=== PATIENT | male | born 1945 | race Caucasian/White ===

== ENCOUNTER 2016-08-27 10:54 | Inpatient (IN) | payer OTHER ==
--- NOTE | 2016-08-27 11:10 | CPEKG ---
Heart Rate: 55 RR Interval: 1091 P-R Interval: 176 QRSD Interval: 74 QT Interval: 412 QTC Interval: 394 P [place]: -7 QRS [place]: 3 T Wave [place]: 14 EKG Severity - ABNORMAL ECG - EKG Impression: SINUS RHYTHM EKG Impression: CONSIDER ANTEROSEPTAL INFARCT EKG Impression: BORDERLINE T WAVE ABNORMALITIES Electronically Signed By: Vera Solorzano 27-Aug-2016 14:49:02
[2016-08-27 11:26] LABS: % IMMATURE GRANULYOCYTES 0.5 % (0.0-1.1); ABSOLUTE IMMATURE GRANULOCYTES 0.03 10^3/uL (0.00-0.10); ADD DIFF? NO; ADD MORPH? NO; ADD SCAN? NO; ATYPICAL LYMPHOCYTE FLAG 0 (0-99); FRAGMENT RBC FLAG 0 (0-99); HEMATOCRIT 43.9 % (40.0-51.0); HEMOGLOBIN 14.8 g/dL (13.7-17.5); LEFT SHIFT FLG 0 (0-99); LIPEMIA HEMOLYSIS FLAG 80 (0-99); MEAN CELL HEMOGLOBIN 31.8 pg (27.9-34.1); MEAN CELL HEMOGLOBIN CONCENTR. 33.7 g/dL (32.4-36.7); MEAN CELL VOLUME 94.2 fL (81.5-99.8); MEAN PLATELET VOLUME 9.9 fL (8.7-11.7); PLATELET CLUMPS FLAG 0 (0-99); PLATELET COUNT 199 10^3/uL (150-400); RED BLOOD CELL COUNT 4.66 10^6/uL (4.40-6.38); RED CELL DISTRIBUTION WIDTH 12.6 % (11.5-15.2)
[2016-08-27 11:34] LABS: ANION GAP 10 mEq/L (8-16); CALCIUM 9.7 mg/dL (8.5-10.4); CARBON DIOXIDE 28 mEq/l (22-31); CHLORIDE 106 mEq/L (97-110); CREATININE 0.9 mg/dL (0.7-1.3); GLOMERULAR FILTRATION RATE > 60; GLUCOSE 90 mg/dL (70-100); POTASSIUM 4.2 mEq/L (3.5-5.2); SODIUM 144 mEq/L (134-144)
[2016-08-27 11:44] LABS: TROPONIN I < 0.012 ng/mL (0-0.034)
--- NOTE | 2016-08-27 11:59 | EDPHY ---
H & P Time Seen by Provider: 08/27/16 11:24 HPI/ROS: CHIEF COMPLAINT: Chest pain HISTORY OF PRESENT ILLNESS: 71-year-old male with a history of coronary disease presents with chest pain. Onset of chest pain 9 days ago. The chest pain has been intermittent and has frequently awakened him from sleep. This morning he had an episode of substernal chest pressure while he was taking a shower. The pressure lasted approximately 15 minutes and then resolved. No associated symptoms. No known alleviating or aggravating factors. The pain has been occurring primarily at rest. Similar to prior heart symptoms. REVIEW OF SYSTEMS: Constitutional: No fever, no chills Eyes: No visual changes ENT: No sore throat Respiratory: No cough, no shortness of breath Gastrointestinal: No nausea, no vomiting, no abdominal pain Genitourinary: no dysuria Musculoskeletal: No leg pain or swelling Skin: No rash Neurological: No headache, no weakness Psychiatric: No depression Past Medical/Surgical History: Coronary artery disease Social History: Counselling Psychologist: Dr. Hernandez Smoking Status: Never smoked Physical Exam: General Appearance: Alert, pleasant Eyes: Pupils equal and round, no conjunctival pallor or injection ENT, Mouth: Mucous membranes moist Neck: Normal inspection Respiratory: Lungs are clear to auscultation Cardiovascular: Regular rate and rhythm Gastrointestinal: Abdomen is soft and nontender Neurological: A&O, nonfocal, normal gait Skin: Warm and dry, no rash Extremities: Nontender, no pedal edema Psychiatric: Mood and affect normal Constitutional: Initial Vital Signs Temperature (C) 36.8 C 08/27/16 11:00 Heart Rate 61 08/27/16 11:00 Respiratory Rate 18 08/27/16 11:00 Blood Pressure 162/93 H 08/27/16 11:00 O2 Sat (%) 94 08/27/16 11:00 O2 Delivery Mode Room Air Allergies/Adverse Reactions: morphine Allergy (Verified 08/27/16 10:55) Itching Home Medications: Medication Instructions Recorded Aspirin [Aspirin 81mg (*)] 81 mg PO HS 06/19/12 Levothyroxine [Synthroid 112 mcg 112 mcg PO DAILY06 06/19/12 (*)] Tamsulosin HCl [Flomax 0.4 MG (*)] 0.4 mg PO HS 06/19/12 Clopidogrel Bisulfate [Plavix (*)] 75 mg PO DAILY 08/27/16 Cyanocobalamin [Vitamin B12 (*)] 2,500 mcg PO MOTUWETHFR 08/27/16 Herbals/Supplements -Info Only 1 ea PO DAILY 08/27/16 Mirtazapine 15 mg PO Q4D 08/27/16 Nitroglycerin [Nitrostat 0.4 mg 0.4 mg SL Q5M PRN 08/27/16 (*)] Rosuvastatin Calcium [Crestor 20mg 20 mg PO HS 08/27/16 (*)] Medical Decision Making - Diagnostics EKG Interpretation: EKG interpreted by me reveals sinus bradycardia, rate 55, poor R-wave progression. Impression: Abnormal EKG Imaging Results: Imaging Impressions Chest X-Ray 08/27/16 11:24 Impression: No evidence for acute cardiopulmonary abnormality. Chronic findings as above. Chest/Thorax CTA 08/27/16 12:00 Impression: 1. No evidence of pulmonary embolus using CT protocol. 2. Relative narrowing of the main pulmonary artery. Rule out pulmonary arterial stenosis. 3. Mild anterior wedging of T8 and T12 appear to be old. If indicated, consider DEXA scan at some point to evaluate underlying bone mineral density. 4. Incidental calcified granuloma left lower lobe and involving the spleen. Findings discussed with Vera Solorzano M.D. at 13:04 hour, 08/27/2016. ED Course/Re-evaluation: This patient with known coronary disease presents with substernal chest pressure , now resolved. Stat EKG reveals no evidence of ischemia. Given multiple episodes of typical cardiac pain, I feel that he will need to be admitted for further cardiac evaluation. D-dimer is slightly elevated, CT pulmonary angiogram ordered to rule out pulmonary embolism. CT pulmonary angiogram is normal. The patient remains asymptomatic. [facility] consultant reveals normal sinus rhythm. The hospitalist service was consulted for admission. Differential Diagnosis: Differential diagnosis includes though it is not limited to pneumonia, pneumothorax, pulmonary embolism, aortic dissection, pericarditis, acute coronary syndrome. - Data Points Laboratory Results: Laboratory Results 08/27/16 11:15 08/27/16 11:15 08/27/16 08/27/16 08/27/16 11:15 11:15 11:05 WBC 6.16 10^3/uL 10^3/uL (3.80-9.50) RBC 4.66 10^6/uL 10^6/uL (4.40-6.38) Hgb 14.8 g/dL g/dL (13.7-17.5) Hct 43.9 % % (40.0-51.0) MCV 94.2 fL fL (81.5-99.8) MCH 31.8 pg pg (27.9-34.1) MCHC 33.7 g/dL g/dL (32.4-36.7) RDW 12.6 % % (11.5-15.2) Plt Count 199 10^3/uL 10^3/uL (150-400) MPV 9.9 fL fL (8.7-11.7) Neut % (Auto) 68.5 % % (39.3-74.2) Lymph % (Auto) 19.3 % % (15.0-45.0) [place] % (Auto) 10.1 % % (4.5-13.0) Eos % (Auto) 1.1 % % (0.6-7.6) Baso % (Auto) 0.5 % % (0.3-1.7) Nucleat RBC Rel Count 0.0 % % (0.0-0.2) Absolute Neuts (auto) 4.22 10^3/uL 10^3/uL (1.70-6.50) Absolute Lymphs (auto) 1.19 10^3/uL 10^3/uL (1.00-3.00) Absolute Monos (auto) 0.62 10^3/uL 10^3/uL (0.30-0.80) Absolute Eos (auto) 0.07 10^3/uL 10^3/uL (0.03-0.40) Absolute Basos (auto) 0.03 10^3/uL 10^3/uL (0.02-0.10) Absolute Nucleated RBC 0.00 10^3/uL 10^3/uL (0-0.01) Immature Gran % 0.5 % % (0.0-1.1) Immature Gran # 0.03 10^3/uL 10^3/uL (0.00-0.10) D-Dimer 0.65 ug/mLFEU H ug/mLFEU (0.00-0.50) Sodium 144 mEq/L mEq/L (134-144) Potassium 4.2 mEq/L mEq/L (3.5-5.2) Chloride 106 mEq/L mEq/L (97-110) Carbon Dioxide 28 mEq/l mEq/l (22-31) Anion Gap 10 mEq/L mEq/L (8-16) BUN 18 mg/dL mg/dL (7-23) Creatinine 0.9 mg/dL mg/dL (0.7-1.3) Estimated GFR > 60 Glucose 90 mg/dL mg/dL (70-100) Calcium 9.7 mg/dL mg/dL (8.5-10.4) Troponin I < 0.012 ng/mL ng/mL (0-0.034) NT-Pro-B Natriuret Pep 136 pg/mL H pg/mL (0-125) Departure - Departure Disposition: [facility] Inpatient Acute Clinical Impression: Chest pain Qualifiers: Chest pain type: precordial pain Qualified Code(s): R07.2 - Precordial pain Condition: Fair
[2016-08-27] MEDS ORDERED: IOPAMIDOL (ISOVUE 370) 100 ML BTL IV ONE (12:34)
[2016-08-27] MEDS ORDERED: ONDANSETRON DISINTEGRATING 4 MG TAB PO PRN (13:38)
[2016-08-27] MEDS ORDERED: ONDANSETRON 4 MG/2 ML VIAL IVP PRN (13:38)
[2016-08-27] MEDS ORDERED: NITROGLYCERIN 0.4 MG BTL SL PRN (13:38)
[2016-08-27] MEDS ORDERED: ACETAMINOPHEN 325 MG TAB PO PRN (13:38)
[2016-08-27] MEDS: CYANO/VITAMIN B12 1000 MCG TAB PO SCH (14:06)
[2016-08-27] MEDS ORDERED: HEPARIN 10,000 UNIT/10 ML MDV IVP PRN ×2 (16:14→16:58)
[2016-08-27] MEDS ORDERED: HEPARIN/DEXTROSE 500 ML IV SCH ×2 (16:14→17:00)
--- NOTE | 2016-08-27 16:19 | GCON ---
[f rep st] CONSULTATION The patient is a 71-year-old gentleman admitted to the hospital for further evaluation. Nine days ago, during the day, he started having intense burning in the center of his chest. It comes on when it wants to, and it was occurring during the day with activity. Now it is occurring in the evenings as well. It is getting more intense every single night. He had 10 minutes of this discomfort in the center of his chest last night. It is a burning sensation without radiation. No arm or jaw pain. In the past, he has had similar symptoms. Had a nuclear stress test, which was abnormal, and led to him having coronary angiography by Dr. Weinstein with stenting 2 years ago. Now he is having similar discomfort. He does not have fever, chills or cough. No syncope, near syncope. No hot, swollen joints. No photophobia, stiff neck, sore throat. No dysphagia or hoarseness. No trauma of the head, neck, or chest. No fever, chills, cough. No lightheadedness, dizziness, syncope. No atrial arrhythmias. No history of atrial fibrillation. He has been taking his usual medications and doing reasonably well. CARDIAC RISK FACTORS: Positive for dyslipidemia and known coronary artery disease. Cardiac risk factors negative for hypertension, diabetes, hyperuricemia, history of known myocardial infarction or family history of any coronary disease. MEDICATIONS: Aspirin, Synthroid, Flomax, Plavix, vitamin B12, herbals, nitroglycerin, Crestor. PAST SURGICAL HISTORY: Multiple knee operations, multiple shoulder operations, 3 stomach operations, status post gastrectomy at [facility], procedure for an obstructive kidney, surgical procedure for renal stones. FAMILY HISTORY: No family history of premature coronary disease. No history of unexplained sudden . ALLERGIES: Morphine; it causes him itching. REVIEW OF SYSTEMS: A 12-point review of systems is negative, except as noted above. SOCIAL HISTORY: He was born in [place], [place], and he worked at [employer] in [place], [place], transferred to [place] in with the [employer]. In 2008, after 36 years with [employer], he retired. He lives with his , and he does have children. He exercises using elliptical, weights, sit-ups, planks, and running for further exercise. VITAL SIGNS: His blood pressure is 118/84. His heart rate is 53. Respiratory rate is 18. Temperature is afebrile. STUDIES: His EKG shows sinus bradycardia, nonspecific ST-T changes. Chest x- ray: No evidence for acute cardiopulmonary abnormality. Chest CT shows no evidence of pulmonary embolism, narrowing of the main pulmonary artery. Question rule out pulmonary arterial stenosis, mild anterior wedging of T8 and T12, and a calcified granuloma of the left lower lobe involving the spleen. His EKG shows possible anterior infarction, nonspecific ST-T flattening. ASSESSMENT AND PLAN: 1. Coronary disease. 2. Dyslipidemia. 3. The patient has developed now a burning sensation, which is very consistent with what he had prior to his stenting 2 years ago. It is in the center of the chest. It bothers him a great deal, and it is getting worse. It is not clear that it is a typical pain in that it is not always worse with exertion and it does not always go away with rest. However, he has significant risk factor in known coronary artery disease and hyperlipidemia. We would recommend that he undergo coronary angiography instead of stress testing to get a definitive diagnosis, and it is a safer approach than going through stress testing. I offered him both options, and he would like to proceed with coronary angiography. He has just eaten a significant amount of food, so we will put him on IV heparin overnight and watch him very carefully. If he deteriorates in any way, he can have an emergency catheterization at any time. However, if he does well , we will leave him alone and do an angiogram first thing in the morning, and he will be n.p.o. after that. I have talked to the nursing staff, and they are going to put both those orders in for n.p.o. and IV heparin starting now. In terms of other causes for his burning, it obviously could be GI in nature. The pulmonary embolism evaluation has been done. A CT angiogram was negative. We have discussed prevention, and he is doing a very good job. 4. Status post gastrectomy. This affects his life in a significant way, and we have discussed this to begin with. 5. History of renal stones. 6. Multiple orthopedic procedures. We should heme test his stools and consider amylase and lipase as well in our evaluation. /[id number]/MODL MTDD
--- NOTE | 2016-08-27 16:39 | PDEACUHP ---
History and Physical - Chief Complaint chest pain - History of Present Illness 71 yo M with PMH of CAD sp 2 stents to LAD in presenting with approximately 9 days of chest pain. He notes the pain frequently wakes him from sleep and has been increasing in both severity and frequency. He notes that it is essentially the exact same pain he had prior to the symptoms he had before his stents were placed. He notes the pain is substernal without radiation, it lasts minutes generally, last episode 10 minutes. The days it wakes him from sleep have associated with days that he has exercised. No positional or pleuritic component. Resting seems to make it better, he has not tried nitro when it occurred. He states that Dr. Weinstein told him that if he has this pain again, he should call 911, which is why he came to the ER for further evaluation. History Information - Allergies/Home Medication List Allergies/Adverse Reactions: morphine Allergy (Verified 08/27/16 10:55) Itching Home Medications: Aspirin [Aspirin 81mg (*)] 81 mg PO HS 06/19/12 [Last Taken 08/26/16] Levothyroxine [Synthroid 112 mcg (*)] 112 mcg PO DAILY06 06/19/12 [Last Taken ] Tamsulosin HCl [Flomax 0.4 MG (*)] 0.4 mg PO HS 06/19/12 [Last Taken 08/26/16] Clopidogrel Bisulfate [Plavix (*)] 75 mg PO DAILY 08/27/16 [Last Taken 08/27/16] Cyanocobalamin [Vitamin B12 (*)] 2,500 mcg PO MOTUWETHFR 08/27/16 [Last Taken ] Herbals/Supplements -Info Only 1 ea PO DAILY 08/27/16 [Last Taken Unknown] Mirtazapine 15 mg PO Q4D 08/27/16 [Last Taken 08/24/16] Nitroglycerin [Nitrostat 0.4 mg (*)] 0.4 mg SL Q5M PRN 08/27/16 [Last Taken Unknown] Rosuvastatin Calcium [Crestor 20mg (*)] 20 mg PO HS 08/27/16 [Last Taken ] I have personally reviewed and updated: family history, medical history, social history, surgical history - Past Medical History coronary artery disease (sp 2 stents to LAD), hypertension, hyperlipidemia Additional medical history: AVNRT s/p ablation. pernicious anemia. sbo. hypothyroid. BPH. 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 multiple ortho surgeries - Social History Smoking Status: Never smoked Review of Systems ROS: 10pt was reviewed & negative except for what was stated in HPI & below Physical Exam Temp Pulse Resp BP Pulse Ox 37.2 C 53 L 18 118/84 H 92 08/27/16 13:54 08/27/16 13:54 08/27/16 13:54 08/27/16 13:54 08/27/16 13:54 Constitutional: no apparent distress, appears nourished Eyes: PERRL Ears, Nose, Mouth, Throat: moist mucous membranes Cardiovascular: regular rate and rhythym, no murmur, rub, or gallop, No edema Respiratory: no respiratory distress, no rales or rhonchi, clear to auscultation Gastrointestinal: normoactive bowel sounds, soft, non-tender abdomen Genitourinary: no bladder fullness Skin: warm Musculoskeletal: full muscle strength, no muscle tenderness Neurologic: AAOx3 Psychiatric: interacting appropriately, not anxious, not encephalopathic Lab Data & Imaging Review 08/27/16 11:15 08/27/16 11:15 WBC 6.16 10^3/uL (3.80-9.50) 08/27/16 11:15 RBC 4.66 10^6/uL (4.40-6.38) 08/27/16 11:15 Hgb 14.8 g/dL (13.7-17.5) 08/27/16 11:15 Hct 43.9 % (40.0-51.0) 08/27/16 11:15 MCV 94.2 fL (81.5-99.8) 08/27/16 11:15 MCH 31.8 pg (27.9-34.1) 08/27/16 11:15 MCHC 33.7 g/dL (32.4-36.7) 08/27/16 11:15 RDW 12.6 % (11.5-15.2) 08/27/16 11:15 Plt Count 199 10^3/uL (150-400) 08/27/16 11:15 MPV 9.9 fL (8.7-11.7) 08/27/16 11:15 Neut % (Auto) 68.5 % (39.3-74.2) 08/27/16 11:15 Lymph % (Auto) 19.3 % (15.0-45.0) 08/27/16 11:15 [place] % (Auto) 10.1 % (4.5-13.0) 08/27/16 11:15 Eos % (Auto) 1.1 % (0.6-7.6) 08/27/16 11:15 Baso % (Auto) 0.5 % (0.3-1.7) 08/27/16 11:15 Nucleat RBC Rel Count 0.0 % (0.0-0.2) 08/27/16 11:15 Absolute Neuts (auto) 4.22 10^3/uL (1.70-6.50) 08/27/16 11:15 Absolute Lymphs (auto) 1.19 10^3/uL (1.00-3.00) 08/27/16 11:15 Absolute Monos (auto) 0.62 10^3/uL (0.30-0.80) 08/27/16 11:15 Absolute Eos (auto) 0.07 10^3/uL (0.03-0.40) 08/27/16 11:15 Absolute Basos (auto) 0.03 10^3/uL (0.02-0.10) 08/27/16 11:15 Absolute Nucleated RBC 0.00 10^3/uL (0-0.01) 08/27/16 11:15 Immature Gran % 0.5 % (0.0-1.1) 08/27/16 11:15 Immature Gran # 0.03 10^3/uL (0.00-0.10) 08/27/16 11:15 D-Dimer 0.65 ug/mLFEU (0.00-0.50) H 08/27/16 11:05 Sodium 144 mEq/L (134-144) 08/27/16 11:15 Potassium 4.2 mEq/L (3.5-5.2) 08/27/16 11:15 Chloride 106 mEq/L (97-110) 08/27/16 11:15 Carbon Dioxide 28 mEq/l (22-31) 08/27/16 11:15 Anion Gap 10 mEq/L (8-16) 08/27/16 11:15 BUN 18 mg/dL (7-23) 08/27/16 11:15 Creatinine 0.9 mg/dL (0.7-1.3) 08/27/16 11:15 Estimated GFR > 60 08/27/16 11:15 Glucose 90 mg/dL (70-100) 08/27/16 11:15 Calcium 9.7 mg/dL (8.5-10.4) 08/27/16 11:15 Troponin I < 0.012 ng/mL (0-0.034) 08/27/16 11:15 NT-Pro-B Natriuret Pep 136 pg/mL (0-125) H 08/27/16 11:15 Visualized and Interpreted Chest x-ray results: Yes Chest X-Ray results: no infiltrate Visualized and Interpreted EKG results: Yes EKG Interpretation: Positive for: normal sinsus rhythm, other EKG additional interpertation: sathish, poor rwp Assessment & Plan Assessment: Chest pain (Acute) 71 yo M with hx of CAD presenting with chest pain similar to prior unstable angina sxs # chest pain/unstable angina: hx concerning for recurrent unstable angina with crescendo sxs similar in nature to prior sxs. Initial w/u including cxr, ecg, trops reassuring. Trend trops, monitor on tele and plan for cardiac angiography in am. Cardiology consulted. # CAD: as above, on asa/plavix with a plan to be on these for life as well as statin but no BB. Will start BB prior to dc # HLD: continue statin # pernicious anemia: stable # hx of gastric carcinoid resection s/p gastrectomy and subsequent sbo: no current issues observation status, will likely need < 48 hours stay for eval/mgmt of above. Care plan reviewed with cardiology, patient new to my care. old records reviewed and summarized as above.
[2016-08-27 18:39] LABS: APTT 34.1 SEC (23.0-38.0); INR 1.12 (0.83-1.16); PROTIME(PATIENT) 14.3 SEC (12.0-15.0)
[2016-08-27] MEDS: TAMSULOSIN HCL 0.4 MG CAP PO SCH (20:04)
[2016-08-27] MEDS ORDERED: ROSUVASTATIN CALCIUM 20 MG TAB PO SCH (21:00)
[2016-08-27] MEDS: diphenhydrAMINE 25 MG CAP PO SCH (21:55)
[2016-08-28] MEDS: LEVOTHYROXINE 112 MCG TAB PO SCH (06:26)
[2016-08-28] MEDS ORDERED: FAMOTIDINE 20 MG TAB PO ONE (07:23)
[2016-08-28] MEDS ORDERED: ASPIRIN EC 325 MG TAB PO ONE (07:23)
[2016-08-28] MEDS ORDERED: NS 1,000 ML IV ONE (07:23)
[2016-08-28] MEDS ORDERED: DIAZEPAM 5 MG TAB PO ONE (07:23)
[2016-08-28] MEDS ORDERED: diphenhydrAMINE 25 MG CAP PO ONE (07:23)
[2016-08-28 07:45] LABS: INR 1.12 (0.83-1.16); PROTIME(PATIENT) 14.3 SEC (12.0-15.0)
[2016-08-28 08:11] LABS: % IMMATURE GRANULYOCYTES 0.2 % (0.0-1.1); ABSOLUTE IMMATURE GRANULOCYTES 0.01 10^3/uL (0.00-0.10); ADD DIFF? NO; ADD MORPH? NO; ADD SCAN? NO; ATYPICAL LYMPHOCYTE FLAG 20 (0-99); FRAGMENT RBC FLAG 0 (0-99); HEMATOCRIT 39.9 % (40.0-51.0); HEMOGLOBIN 13.7 g/dL (13.7-17.5); LEFT SHIFT FLG 0 (0-99); LIPEMIA HEMOLYSIS FLAG 90 (0-99); MEAN CELL HEMOGLOBIN 32.4 pg (27.9-34.1); MEAN CELL HEMOGLOBIN CONCENTR. 34.3 g/dL (32.4-36.7); MEAN CELL VOLUME 94.3 fL (81.5-99.8); PLATELET CLUMPS FLAG 0 (0-99); PLATELET COUNT 172 10^3/uL (150-400); RED BLOOD CELL COUNT 4.23 10^6/uL (4.40-6.38); RED CELL DISTRIBUTION WIDTH 12.7 % (11.5-15.2)
[2016-08-28 09:03] LABS: ANION GAP 9 mEq/L (8-16); CARBON DIOXIDE 25 mEq/l (22-31); CHLORIDE 107 mEq/L (97-110); CHOLESTEROL 85 mg/dL (140-220); CHOLESTEROL/HDL RATIO 2.43 RATIO (1.00-4.97); CREATININE 0.9 mg/dL (0.7-1.3); GLOMERULAR FILTRATION RATE > 60; GLUCOSE 100 mg/dL (70-100); HIGH DENSITY LIPOPROTEIN 35 mg/dL (40-65); LDL/HDL RATIO 1.06 RATIO (1.00-3.64); LOW DENSITY LIPOPROTEIN 37 mg/dL (80-100); MAGNESIUM 2.1 mg/dL (1.6-2.3); NON-HIGH DENSITY LIPOPROTEIN 50 mg/dL (90-129); SODIUM 141 mEq/L (134-144); TRIGLYCERIDE 69 mg/dL (40-150); VERY LOW DENSITY LIPOPROTEINS 13 mg/dL (8-25)
[2016-08-28] MEDS ORDERED: fentaNYL 100 MCG/2 ML INJ ONE ×2 (09:12→10:16)
[2016-08-28] MEDS ORDERED: LIDOCAINE 1% 30 ML SDV ONE (09:12)
[2016-08-28] MEDS ORDERED: MIDAZOLAM 2 MG/2 ML VIAL ONE ×2 (09:13→10:16)
[2016-08-28] MEDS ORDERED: IOPAMIDOL (ISOVUE-370) 150 ML BTL IV ONE ×2 (09:13)
[2016-08-28] MEDS ORDERED: BIVALIRUDIN 250 MG/5 ML VIAL IV ONE (10:24)
[2016-08-28] MEDS ORDERED: CLOPIDOGREL BISULFATE 75 MG TAB ONE (11:00)
--- NOTE | 2016-08-28 11:02 | PDDXCAT ---
Diagnostic Cath Note - . Date: 08/28/16 Intervention: 1. Intravascular ultrasound (IVUS) 2. PTCA and drug eluting stent implantation in the proximal LAD *Procedure 1. selective coronary angiography 2. intravascular ultrasound 3. PTCA and drug-eluting stent implantation the proximal LAD Indication: I was called to perform intravascular ultrasound and possible intervention following the identification of a 60% proximal LAD lesion with JUAN PABLO III flow on diagnostic catheterization with Dr. Moreno. Access: right femoral artery *Materials Left Heart Cath size: 6F Left Heart Cath materials: JL5 Convey, Intuition guide wire, IVUS catheter, 3 x 12 mm Synergy *Findings-Selective Coronary Angiography LAD: The LAD is ~3 mm in size proximally. There is a 67% plaque area stenosis ( via IVUS) in the proximal LAD just distal to previous stent implantation with JUAN PABLO III flow. *Intervention A 6 [place] JL5 Convey was used for guide catheter support and a 0.014" Intuition Guide Wire was inserted into the distal LAD under direct fluoroscopic and angiographic guidance. Intravascular ultrasound with IVUS catheter was performed from the mid to proximal LAD revealing maximal luminal stenosis of 67 % with JUAN PABLO III flow angiographically. We proceeded with drug-eluting stent implantation. A 3 x 12 mm Synergy drug- eluting stent was placed in the LAD lesion just distal to previous stent implantation and inflated to a maximum of 16 aby of pressure. Status post stent implantation, IVUS was again performed in the lesion. There were excellent results with 5% residual stenosis with excellent stent geometry. The stent was well opposed to the vessel wall and JUAN PABLO III flow was present angiographically. *Summary Complications: None Estimated blood loss: <50 mL Closure method: Angioseal Summary: 1. Successful PTCA and drug-eluting stent implantation in the proximal LAD with 5% residual stenosis and JUAN PABLO III flow angiographically. The patient will need to be on dual-antiplatelet therapy for at 1 year status post stent implantation. Patient Problems: Problems Problem Status Onset Chest pain Acute Coronary artery disease Acute Chest pain Acute - ICD10 Problem Qualifiers (1) Coronary artery disease Qualifiers: Coronary Disease-Associated Artery/Lesion type: [place] artery [place] vs. transplanted heart: [place] heart Associated angina: with stable angina Qualified Code(s): I25.118 - Atherosclerotic heart disease of [place] coronary artery with other forms of angina pectoris
[2016-08-28] MEDS ORDERED: LORazepam 2 MG/ML INJ IVP PRN (11:16)
[2016-08-28] MEDS ORDERED: ATROPINE SULFATE 1 MG/10 ML SYR IVP PRN (11:16)
[2016-08-28] MEDS ORDERED: CLOPIDOGREL BISULFATE 75 MG TAB PO ONE (11:16)
[2016-08-28] MEDS ORDERED: TEMAZEPAM 15 MG CAP PO PRN (11:16)
--- NOTE | 2016-08-28 11:20 | CPEKG ---
Heart Rate: 60 RR Interval: 1000 P-R Interval: 184 QRSD Interval: 74 QT Interval: 436 QTC Interval: 436 P [place]: 11 QRS [place]: 6 T Wave [place]: -3 EKG Severity - ABNORMAL ECG - EKG Impression: SINUS RHYTHM EKG Impression: PROBABLE ANTEROSEPTAL INFARCT, OLD EKG Impression: BORDERLINE T ABNORMALITIES, INFERIOR LEADS Electronically Signed By: Angelo Liu 28-Aug-2016 14:38:07
[2016-08-28] MEDS ORDERED: NS 1,000 ML IV SCH (11:30)
--- NOTE | 2016-08-28 11:57 | CPIP ---
[f rep st] INVASIVE CARDIAC PROCEDURE INDICATION: The patient has angina, which is very similar to the discomfort he had with his prior stent. He is getting it at rest, and it has been increasing. It was felt that he was much safer coming to coronary angiography than to go undergo a stress test. He understands the risks and options and wants to proceed. PROCEDURE: 1. Left heart catheterization. 2. Left ventriculogram. 3. Right and left coronary arteriogram. FINDINGS: ANGIOGRAPHY: 1. Left main coronary artery normal. 2. Proximal LAD stent is excellent. At the distal end of the stent, there is a small hazy area without high-grade obstruction. There is excellent flow through the region. The distal LAD has intimal disease present. The circumflex has no significant disease. 3. The right coronary artery is dominant, and there is no high-grade obstructive disease present. LEFT HEART CATH: 1. Left ventricular end-diastolic pressure 12 mmHg. 2. No aortic stenosis. LEFT VENTRICULOGRAM: 1. Normal left ventricular systolic function. 2. Normal left ventricular wall motion. 3. Normal left ventricular chamber dimension. 4. No severe mitral regurgitation. ASSESSMENT: 1. Severe coronary artery disease with good flow through all 3 vessels. 2. Abnormal-appearing mid left anterior descending. 3. Excellent flow through the current stent in the left anterior descending. 4. Area of haziness in the mid left anterior descending, and percutaneous coronary intervention consultation has been requested for intravascular ultrasound and further evaluation. All films were reviewed. COMPLICATIONS: None. BLOOD LOSS: 5 cc. /[id number]/MODL MTDD
--- NOTE | 2016-08-28 13:09 | CPEKG ---
Heart Rate: 51 RR Interval: 1176 P-R Interval: 192 QRSD Interval: 74 QT Interval: 440 QTC Interval: 406 P [place]: 4 QRS [place]: 7 T Wave [place]: -22 EKG Severity - BORDERLINE ECG - EKG Impression: SINUS RHYTHM EKG Impression: NON-SPECIFIC T WAVE FLATTENING. Electronically Signed By: Angelo Liu 28-Aug-2016 14:37:53
[2016-08-28] MEDS: ASPIRIN 325 MG TAB PO SCH (13:43)
[2016-08-28] MEDS: CLOPIDOGREL BISULFATE 75 MG TAB PO SCH (13:43)
--- NOTE | 2016-08-28 15:26 | HOSPPROG ---
Hospitalist Progress Note Assessment/Plan: 71 yo M with hx of CAD presenting with chest pain similar to prior unstable angina sxs # unstable angina: presenting with crescendo angina, taken to prosthetics lab technician today and found to have recurrent disease in LAD and now s/p PCI to LAD. Doing well post cath, continue medical management. Will dc home likely in am so long as continues to do well overnight. # CAD: as above, continue on asa/plavix, will need dual antiplatelet therapy for life. Has been on rosuvastatin and will change to atorvastatin. Added low dose carvedilol. # HLD: continue statin but transitioned to atorvastatin # pernicious anemia: stable # hx of gastric carcinoid resection s/p gastrectomy and subsequent sbo: no current issues Dispo: IP status, given presentation with high risk issue of unstable angina requiring urgent angiography will need > 48 hours stay Subjective: no significant overnight events, patient currently feeling quite well, has eaten, no chest pain overnight Objective: Vital Signs Temp Pulse Resp BP Pulse Ox 36.7 C 84 20 109/57 L 90 L 08/28/16 15:02 08/28/16 15:02 08/28/16 15:02 08/28/16 15:02 08/28/16 15:02 PT 14.3 SEC (12.0-15.0) 08/28/16 07:23 INR 1.12 (0.83-1.16) 08/28/16 07:23 awake alert nad anicteric op clear rrr no mrg cta b soft nt nd no cce warm dry well perfused oriented appropriate - Time Spent With Patient Time Spent with Patient: greater than 35 minutes Time Spent with Patient: Greater than 35 minutes spent on this patients care, greater than 50% of time spent counseling, educating, and coordinating care regarding the above mentioned plan. ICD10 Worksheet Patient Problems: Problems Problem Status Onset Chest pain Acute Chest pain Acute Coronary artery disease Acute
--- NOTE | 2016-08-28 16:45 | SOAPPROG ---
KEVIN Progress Note Assessment/Plan: Assessment: Plan: 08/28/16 16:43 1. Coronary artery disease 2. Dyslipidemia We have discussed his coronary angiography. He wants to proceed with the test. We have gone over the options. I have discussed this with his as well. We will proceed angiography. He and I have reviewed prevention and exercise and lipid management. Subjective: He had no pain last night. He has not had fever chills or cough He has no nausea or vomiting He is not having hot swollen joints or major rashes Studying stiff neck sore throat He is not having headaches near-syncope No palpitations no orthopnea PND dyspnea exertion. Objective: Vital Signs Temp Pulse Resp BP Pulse Ox 36.7 C 84 20 109/57 L 90 L 08/28/16 15:02 08/28/16 15:02 08/28/16 15:02 08/28/16 15:02 08/28/16 15:02 PT 14.3 SEC (12.0-15.0) 08/28/16 07:23 INR 1.12 (0.83-1.16) 08/28/16 07:23 Physical Exam - Physical Exam General Appearance: alert, no apparent distress Respiratory: normal breath sounds Cardiac/Chest: regular rate, rhythm, systolic murmur, No JVD Abdomen: normal bowel sounds, non-tender, soft, No organomegaly Skin: warm/dry, No pallor Extremities: non-tender, No pedal edema, No calf tenderness Neuro/Psych: alert, normal mood/affect ICD10 Worksheet Patient Problems: Problems Problem Status Onset Chest pain Acute Coronary artery disease Acute Chest pain Acute
[2016-08-28] MEDS: CARVEDILOL 3.125 MG TAB PO SCH (17:17)
[2016-08-28] MEDS: CYANO/VITAMIN B12 1000 MCG TAB PO SCH (17:18)
[2016-08-28] MEDS: TAMSULOSIN HCL 0.4 MG CAP PO SCH (19:34)
[2016-08-28] MEDS: diphenhydrAMINE 25 MG CAP PO SCH (20:29)
[2016-08-28] MEDS ORDERED: ATORVASTATIN CALCIUM 40 MG TAB PO SCH (21:00)
[2016-08-29 04:36] VITALS: O2SAT 92
[2016-08-29 05:35] LABS: % IMMATURE GRANULYOCYTES 0.3 % (0.0-1.1); ABSOLUTE IMMATURE GRANULOCYTES 0.02 10^3/uL (0.00-0.10); ADD DIFF? NO; ADD MORPH? NO; ADD SCAN? NO; ALBUMIN 3.2 g/dL (3.5-5.0); ASPARTATE AMINOTRANSFERASE 20 IU/L (17-59); ATYPICAL LYMPHOCYTE FLAG 0 (0-99); BILIRUBIN,TOTAL 0.7 mg/dL (0.1-1.4); CALCIUM 8.9 mg/dL (8.5-10.4); CARBON DIOXIDE 25 mEq/l (22-31); CHLORIDE 105 mEq/L (97-110); CREATININE 0.9 mg/dL (0.7-1.3); FRAGMENT RBC FLAG 0 (0-99); GLOMERULAR FILTRATION RATE > 60; GLUCOSE 83 mg/dL (70-100); HEMATOCRIT 37.8 % (40.0-51.0); HEMOGLOBIN 12.9 g/dL (13.7-17.5); LACTATE DEHYDROGENASE 494 IU/L (313-618); LEFT SHIFT FLG 0 (0-99); LIPEMIA HEMOLYSIS FLAG 90 (0-99); MAGNESIUM 2.1 mg/dL (1.6-2.3); MEAN CELL HEMOGLOBIN 32.5 pg (27.9-34.1); MEAN CELL HEMOGLOBIN CONCENTR. 34.1 g/dL (32.4-36.7); MEAN CELL VOLUME 95.2 fL (81.5-99.8); MEAN PLATELET VOLUME 10.2 fL (8.7-11.7); PLATELET CLUMPS FLAG 0 (0-99); PLATELET COUNT 151 10^3/uL (150-400); RED BLOOD CELL COUNT 3.97 10^6/uL (4.40-6.38); RED CELL DISTRIBUTION WIDTH 12.5 % (11.5-15.2); SODIUM 137 mEq/L (134-144)
[2016-08-29 06:10] LABS: ANION GAP 7 mEq/L (8-16); POTASSIUM 4.5 mEq/L (3.5-5.2)
[2016-08-29] MEDS: LEVOTHYROXINE 112 MCG TAB PO SCH (06:46)
[2016-08-29 07:18] VITALS: BP 123/72; PULSE 57; RESP 16; TEMP 97.8
[2016-08-29] MEDS: ASPIRIN 325 MG TAB PO SCH (07:38)
[2016-08-29] MEDS: CLOPIDOGREL BISULFATE 75 MG TAB PO SCH (07:38)
--- NOTE | 2016-08-29 08:55 | CPEKG ---
Heart Rate: 64 RR Interval: 938 P-R Interval: 196 QRSD Interval: 78 QT Interval: 380 QTC Interval: 392 P Midland: 44 QRS [place]land: 7 T Wave [place]land: 231 EKG Severity - ABNORMAL ECG - EKG Impression: SINUS RHYTHM EKG Impression: CONSIDER ANTEROSEPTAL INFARCT EKG Impression: NONSPECIFIC T ABNORMALITIES, DIFFUSE LEADS Electronically Signed By: Angelo Liu 29-Aug-2016 12:16:19
--- NOTE | 2016-08-29 09:17 | PDDCSUM ---
Discharge Summary Discharge Summary: Dates of service 08/27-08/29/16 Consultations: cardiology Procedures performed: chest CT angio, cardiac angiography and stent to LAD Hospital course by problem: # unstable angina: presenting with crescendo angina, taken to medical laboratory assistant today and found to have recurrent disease in LAD and now s/p PCI to LAD. continue medical management. # CAD: as above, continue on asa/plavix, will need dual antiplatelet therapy for life. Has been on rosuvastatin and will change to atorvastatin. Has had significant bradycardia on BB so will not start BB at this time. # HLD: continue statin but transitioned to atorvastatin # pernicious anemia: stable # hx of gastric carcinoid resection s/p gastrectomy and subsequent sbo: no current issues DC home f/u with cardiology/PCP Meds see EHR > 35 minutes of care spent in dc of this patient more than half in coordination of care and counseling of patient regarding f/u care plans
[2016-08-29] MEDS: CARVEDILOL 3.125 MG TAB PO SCH (09:42)
--- NOTE | 2016-08-29 13:52 | SOAPPROG ---
KEVIN Progress Note Assessment/Plan: Assessment: Plan: 08/28/16 16:43 08/29/16 13:50 1. Coronary artery disease 2. Dyslipidemia 3. Chest discomfort He has coronary angiogram yesterday and did not show any significant obstructive disease. Symptoms have improved. Because of his burning is not clear. The pain was not typical for angina but it was similar to the what he thought was angina in the past. He is walking around feels very well today. He will follow up with me in the office. We have reviewed prevention. 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 I will see him after that is done. 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 I would like him to lose some weight and continue to work on his exercise. All his questions have been answered I have discussed this case with his . I have been in contact with the hospitalist. He is cannot take beta-sid so there was some question about whether he was going to Coreg but he is not going to do that. 08/29/16 13:52 Subjective: He is not having any chest pain Did not have any more heart burning. All he is not having he is not having any trouble with his angiography site. He is taking his medication. Been walking around and not having any symptoms. He has no shortness of breath or orthopnea. He has no peripheral edema. Objective: Vital Signs Temp Pulse Resp BP Pulse Ox 36.6 C 57 L 16 123/72 H 92 08/29/16 07:15 08/29/16 07:15 08/29/16 07:15 08/29/16 07:15 08/29/16 07:15 Laboratory Results 08/29/16 04:52 08/29/16 04:52 08/28/16 08/29/16 08/30/16 05:59 05:59 05:59 Intake Total 820 Output Total 500 Balance 320 PT 14.3 SEC (12.0-15.0) 08/28/16 07:23 INR 1.12 (0.83-1.16) 08/28/16 07:23 Physical Exam - Physical Exam General Appearance: alert, no apparent distress Neck: full range of motion Respiratory: lungs clear Cardiac/Chest: regular rate, rhythm, systolic murmur Abdomen: non-tender, soft, organomegaly Skin: normal color, warm/dry Extremities: non-tender, normal inspection Neuro/Psych: alert, normal mood/affect ICD10 Worksheet Patient Problems: Problems Problem Status Onset Chest pain Acute Chest pain Acute Coronary artery disease Acute
== END 2016-08-29 10:55 | disposition home or self-care (01) | DRG 247 ==
LOC: F1N 13:00 → F2W 08-28 12:52 → OBSVTOIN 08-28 13:17
PROVIDERS: ADMIT Internal Medicine; ATTEND Internal Medicine
PROC: 4A023N7 Measurement of Cardiac Sampling and Pressure, Left Heart, Percutaneous Approach (ICD-10-PCS; principal; 2016-08-28)
PROC: 027034Z Dilation of Coronary Artery, One Artery with Drug-eluting Intraluminal Device, Percutaneous Approach (ICD-10-PCS; principal; 2016-08-28)
PROC: B2151ZZ Fluoroscopy of Left Heart using Low Osmolar Contrast (ICD-10-PCS; principal; 2016-08-28)
PROC: B2111ZZ Fluoroscopy of Multiple Coronary Arteries using Low Osmolar Contrast (ICD-10-PCS; principal; 2016-08-28)
DX: I25.110 Atherosclerotic heart disease of native coronary artery with unstable angina pectoris (principal); E78.5 Hyperlipidemia, unspecified; I10 Essential (primary) hypertension; D51.0 Vitamin B12 deficiency anemia due to intrinsic factor deficiency; Z95.5 Presence of coronary angioplasty implant and graft
CPT/HCPCS: 85520-90; C1753; C1760; C1769; C1874; C1887; C9600; G0378; J0583; J1644; J2250; J3010; Q9967

== ENCOUNTER 2017-09-12 23:06 | Inpatient (IN) | payer OTHER, MEDICARE ==
--- NOTE | 2017-09-12 23:19 | EDPHY ---
H & P Stated Complaint: ABd pain, recent obstruction Time Seen by Provider: 09/12/17 23:19 HPI/ROS: HPI CHIEF COMPLAINT: Nausea, vomiting, abdominal bloating, recent SBO HISTORY OF PRESENT ILLNESS: Very pleasant 72-year-old male, he presents emergency room after he got off a flight a [place] this evening at 9:00 p.m. He came directly here due to increasing abdominal distension nausea, he was recently hospitalized in [place] for the past 3 days with NG tube diagnosed with a small-bowel obstruction. He states he is feeling somewhat better and the NG tube was removed any flew home. However after having the NG tube removed his abdominal pain got worse with distension associated nausea. He did have a bowel movement today x2. He has been passing flatus. No fever. Denies chest pain or shortness of breath. Past Medical History: Carcinoid tumor, small-bowel obstruction, coronary disease with stents Past Surgical History: Multiple abdominal surgeries including Nick-en-Y gastric bypass, partial gastrectomy, pyloroplasty, history of small-bowel obstruction Social History: Denies daily use drugs alcohol tobacco. Family History: Noncontributory ROS REVIEW OF SYSTEMS: A comprehensive 10 point review of systems is otherwise negative aside from elements mentioned in the history of present illness. Exam Constitutional appears well nontoxic no acute distress, triage nursing summary reviewed, vital signs reviewed, awake/alert. Eyes normal conjunctivae and sclera, EOMI, PERRLA. HENT normal inspection, atraumatic, moist mucus membranes, no epistaxis, neck supple/ no meningismus, no raccoon eyes. Respiratory clear to auscultation bilaterally, normal breath sounds, no respiratory distress, no wheezing. Cardiovascular rate normal, regular rhythm, no murmur, no edema, distal pulses normal. Gastrointestinal soft abdomen however diffusely tender, no peritoneal signs, hypoactive bowel sounds. Genitourinary no CVA tenderness. Musculoskeletal no midline vertebral tenderness, full range of motion, no calf swelling, no tenderness of extremities, no meningismus, good pulses, neurovascularly intact. Skin pink, warm, & dry, no rash, skin atraumatic. Neurologic awake, alert and oriented x 3, AAOx3, moves all 4 extremities equally, motor intact, sensory intact, CN II-XII intact, normal cerebellar, normal vision, normal speech. Psychiatric normal mood/affect. Heme/Lymph/Immune no lymphadenopathy. Differential diagnosis includes but is not limited to and in no particular order : Bowel obstruction, appendicitis, gallbladder disease, diverticulitis, colitis , enteritis, perforated viscus, gastritis, GERD, esophagitis, urinary tract infection, pyelonephritis, kidney stones Medical Decision Making: Plan for this patient IV establishment with IV fluid bolus, Zofran for nausea, Dilaudid for pain control, check basic blood work, lactic acid, KUB x-ray. Re-evaluate. Re-evaluation: KUB reviewed. Shows air-fluid levels concerning for small bowel obstruction. 1205: KUB reviewed shows SBO. 1205: Spoke with Dr. Aguilera on-call for surgery does recommend NG tube. Patient be admitted the hospital for SBO observation. Most likely plan on CT imaging in the morning with oral and IV contrast. Possible small-bowel follow- through. Updated patient is fine with this plan. 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 HAD PYROPLASTY AND NCIK EN Y , BOWEL OBSTRUCTIONS - Social History Smoking Status: Never smoked Constitutional: Initial Vital Signs Temperature (C) 36.7 C 09/12/17 23:17 Heart Rate 61 09/12/17 23:17 Respiratory Rate 18 09/12/17 23:17 Blood Pressure 174/89 H 09/12/17 23:17 O2 Sat (%) 97 09/12/17 23:17 O2 Delivery Mode Room Air Allergies/Adverse Reactions: morphine Allergy (Verified 09/12/17 23:15) Itching Home Medications: Medication Instructions Recorded Aspirin [Aspirin 81mg (*)] 81 mg PO HS 06/19/12 Levothyroxine [Synthroid 112 mcg 112 mcg PO DAILY06 06/19/12 (*)] Tamsulosin HCl [Flomax 0.4 MG (*)] 0.4 mg PO HS 06/19/12 Clopidogrel Bisulfate [Plavix (*)] 75 mg PO DAILY 08/27/16 Cyanocobalamin [Vitamin B12 (*)] 2,500 mcg PO MOTUWETHFR 08/27/16 Herbals/Supplements -Info Only 1 ea PO DAILY 08/27/16 Mirtazapine 15 mg PO Q4D 08/27/16 Nitroglycerin [Nitrostat 0.4 mg 0.4 mg SL Q5M PRN 08/27/16 (*)] Atorvastatin Calcium 40 mg PO DAILY #30 tablet 08/29/16 oxyCODONE IR [Oxycodone Ir (*)] 5 mg PO Q4HRS PRN #15 tab 09/14/17 Medical Decision Making - Data Points Laboratory Results: Laboratory Results 09/12/17 23:35 09/12/17 23:35 Medications Given: Aspirin (Aspirin) 81 mg PO HS ARMIN Stop: 03/13/18 20:59 Last Admin: 09/14/17 20:40 Dose: 81 mg Hydromorphone HCl (Dilaudid) 0.2 mg IVP Q2HRS PRN PRN Reason: Pain, Severe Unable to Take PO Stop: 09/23/17 01:23 Last Admin: 09/14/17 20:40 Dose: 0.2 mg Dextrose/Sodium Chloride (D5w 1/2 Ns) 1,000 mls @ 100 mls/hr IV CONT ARMIN Stop: 03/12/18 15:59 Last Admin: 09/13/17 16:38 Dose: 1,000 mls Levothyroxine Sodium (Synthroid) 112 mcg PO DAILY06 ARMIN Stop: 03/12/18 05:59 Last Admin: 09/14/17 06:14 Dose: 112 mcg Mirtazapine (Remeron) 15 mg PO Q4D ARMIN Stop: 03/13/18 09:59 Last Admin: 09/14/17 10:41 Dose: 15 mg Oxycodone HCl (Oxycodone Ir) 5 mg PO Q4HRS PRN PRN Reason: Pain, Severe Able to Take PO Stop: 09/24/17 09:53 Last Admin: 09/14/17 15:08 Dose: 5 mg Tamsulosin HCl (Flomax) 0.4 mg PO HS ARMIN Stop: 03/12/18 20:59 Last Admin: 09/14/17 20:40 Dose: 0.4 mg Temazepam (Restoril) 15 mg PO HS PRN PRN Reason: Sleep/Insomnia Stop: 03/12/18 01:20 Last Admin: 09/13/17 22:27 Dose: 15 mg Vitamin B Complex (Vitamin B12) 2,500 mcg PO MOTUWETHFR ARMIN Stop: 03/13/18 09:59 Last Admin: 09/14/17 10:41 Dose: 2,500 mcg Discontinued Medications Bupivacaine HCl (Sensorcaine 0.5% Vial) Confirm Administered Dose 30 ml .ROUTE .STK-MED ONE Stop: 09/13/17 13:27 Last Admin: 09/13/17 14:34 Dose: 15 ml Diphenhydramine HCl (Benadryl Injection) 25 mg IVP ONCE ONE Stop: 09/13/17 18:46 Last Admin: 09/13/17 18:44 Dose: 25 mg Hydromorphone HCl (Dilaudid) 0.5 mg IVP EDNOW ONE Stop: 09/12/17 23:39 Last Admin: 09/12/17 23:47 Dose: 0.5 mg Hydromorphone HCl (Dilaudid) 0.1 - 0.4 mg IVP Q10M PRN PRN Reason: PACU, PAIN Stop: 09/13/17 15:37 Last Admin: 09/13/17 15:38 Dose: 0.4 mg Sodium Chloride (Ns) 1,000 mls @ 0 mls/hr IV EDNOW ONE; Wide Open PRN Reason: Protocol Stop: 09/12/17 23:26 Last Admin: 09/12/17 23:46 Dose: 1,000 mls Potassium Chloride/Dextrose/Sod Cl (D5w 1/2 Ns W/ 20 Kcl/L) 1,000 mls @ 100 mls /hr IV CONT ARMIN Stop: 03/12/18 01:29 Last Admin: 09/13/17 12:08 Dose: 1,000 mls Cefazolin Sodium (Cefazolin Syringe) 2 gm in 20 mls @ 200 mls/hr IVP ONCALL ONE PRN Reason: Protocol Stop: 09/13/17 14:04 Last Admin: 09/13/17 14:18 Dose: 20 mls Metronidazole/Sodium Chloride (Flagyl 500 Mg (Premix)) 100 mls @ 100 mls/hr IV ONCE ONE PRN Reason: Protocol Stop: 09/13/17 14:58 Last Admin: 09/13/17 14:13 Dose: 100 mls Lidocaine HCl (Lidocaine Hcl 1%) Confirm Administered Dose 300 mg .ROUTE .STK- MED ONE Stop: 09/13/17 13:27 Last Admin: 09/13/17 14:34 Dose: 150 mg Ondansetron HCl (Zofran) 4 mg IVP EDNOW ONE Stop: 09/12/17 23:39 Last Admin: 09/12/17 23:46 Dose: 4 mg Departure - Departure Disposition: [facility] Inpatient Acute Clinical Impression: SBO (small bowel obstruction) Condition: Good
[2017-09-12] MEDS ORDERED: NS 1,000 ML IV ONE (23:25)
[2017-09-12] MEDS ORDERED: HYDROmorphONE/DILAUDID 2 MG/ML INJ IVP ONE (23:38)
[2017-09-12] MEDS ORDERED: ONDANSETRON 4 MG/2 ML VIAL IVP ONE (23:38)
[2017-09-12 23:45] LABS: PLATELET COUNT 183 10^3/uL (150-400)
[2017-09-12 23:53] LABS: INR 1.06 (0.83-1.16)
[2017-09-13] MEDS ORDERED: LIDOCAINE 2% JELLY 20 ML (UROJECT) ONE (00:18)
--- NOTE | 2017-09-13 01:16 | PDGENHP ---
History and Physical - Chief Complaint Nausea vomiting possible small-bowel obstruction - History of Present Illness This is a 72-year-old gentleman with history of gastric carcinoid tumor treated with gastrectomy. The patient has had subsequent revision of gastrectomy at [facility] with a subtotal gastrectomy with Nick-en-Y reconstruction for intractable vomiting over 7 years. The patient has done well since then he has had 1 surgery for a partial small-bowel obstruction and also for renal lithiasis. He presents today 1 year after prior small-bowel obstruction treated conservatively in [facility]. The patient was seen initially in [place] and stayed 3 days at [facility] with NG tube decompression. After 6 hr of clamping without residual he was discharged and took a flight home to [place]. He immediately had symptoms and presented to [facility] for re-evaluation. His primary care doctors Dr. Herman Martinez. His history includes coronary artery disease status post PTCA with stents, pernicious anemia, hypercholesterolemia and hypothyroidism. His medications include Plavix which has been held for an upcoming total hip arthroplasty with Dr. Lassiter with this Thursday. This will likely be delayed due to his current illness. History Information - Allergies/Home Medication List Allergies/Adverse Reactions: morphine Allergy (Verified 09/12/17 23:15) Itching Home Medications: Aspirin [Aspirin 81mg (*)] 81 mg PO HS 06/19/12 [Last Taken 08/26/16] Levothyroxine [Synthroid 112 mcg (*)] 112 mcg PO DAILY06 06/19/12 [Last Taken ] Tamsulosin HCl [Flomax 0.4 MG (*)] 0.4 mg PO HS 06/19/12 [Last Taken 08/26/16] Clopidogrel Bisulfate [Plavix (*)] 75 mg PO DAILY 08/27/16 [Last Taken 08/27/16] Cyanocobalamin [Vitamin B12 (*)] 2,500 mcg PO MOTUWETHFR 08/27/16 [Last Taken ] Herbals/Supplements -Info Only 1 ea PO DAILY 08/27/16 [Last Taken Unknown] Mirtazapine 15 mg PO Q4D 08/27/16 [Last Taken 08/24/16] Nitroglycerin [Nitrostat 0.4 mg (*)] 0.4 mg SL Q5M PRN 08/27/16 [Last Taken Unknown] I have personally reviewed and updated: family history, medical history, surgical history - Past Medical History coronary artery disease Additional medical history: Precocious anemia, hypercholesterolemia, insomnia, gastric carcinoid - Surgical History Reports: cholecystectomy Additional surgical history: Subtotal gastrectomy, pyloroplasty, truncal vagotomy - Family History Additional family history: Carcinoid tumor in his sister - Social History Smoking Status: Never smoked Review of Systems Review of Systems: ROS: 10pt was reviewed & negative except for what was stated in HPI & below Gastrointestinal: Reports: vomitting, abdominal pain, abdominal distention Genitourinary: Reports: frequency Neurological: Reports: other (Insomnia) Physical Exam Physical Exam: Alert oriented to person place and time. Sclerae anicteric Oropharynx is slightly dry. Nasogastric tube at 56 cm with enteric drainage. No JVD no thyromegaly no scars on the neck Trachea midline Regular rate and rhythm S1-S2 Clear to auscultation bilaterally Abdomen soft nontender nondistended well-healed widened midline scar from xiphoid to just above umbilicus 2+ over 2+ radial and dorsalis pedis pulses no peripheral edema Skin normal turgor and tone Normal affect Temp Pulse Resp BP Pulse Ox 36.7 C 65 16 124/76 H 92 09/12/17 23:17 09/13/17 00:36 09/13/17 00:36 09/13/17 00:36 09/13/17 00:36 O2 (L/minute) 2 Lab Data & Imaging Review 09/12/17 23:35 09/12/17 23:35 WBC 6.82 10^3/uL (3.80-9.50) 09/12/17 23:35 RBC 4.25 10^6/uL (4.40-6.38) L 09/12/17 23:35 Hgb 13.6 g/dL (13.7-17.5) L 09/12/17 23:35 Hct 40.0 % (40.0-51.0) 09/12/17 23:35 MCV 94.1 fL (81.5-99.8) 09/12/17 23:35 MCH 32.0 pg (27.9-34.1) 09/12/17 23:35 MCHC 34.0 g/dL (32.4-36.7) 09/12/17 23:35 RDW 12.9 % (11.5-15.2) 09/12/17 23:35 Plt Count 183 10^3/uL (150-400) 09/12/17 23:35 MPV 10.4 fL (8.7-11.7) 09/12/17 23:35 Neut % (Auto) 75.7 % (39.3-74.2) H 09/12/17 23:35 Lymph % (Auto) 14.5 % (15.0-45.0) L 09/12/17 23:35 [place] % (Auto) 9.5 % (4.5-13.0) 09/12/17 23:35 Eos % (Auto) 0.0 % (0.6-7.6) L 09/12/17 23:35 Baso % (Auto) 0.0 % (0.3-1.7) L 09/12/17 23:35 Nucleat RBC Rel Count 0.0 % (0.0-0.2) 09/12/17 23:35 Absolute Neuts (auto) 5.16 10^3/uL (1.70-6.50) 09/12/17 23:35 Absolute Lymphs (auto) 0.99 10^3/uL (1.00-3.00) L 09/12/17 23:35 Absolute Monos (auto) 0.65 10^3/uL (0.30-0.80) 09/12/17 23:35 Absolute Eos (auto) 0.00 10^3/uL (0.03-0.40) L 09/12/17 23:35 Absolute Basos (auto) 0.00 10^3/uL (0.02-0.10) L 09/12/17 23:35 Absolute Nucleated RBC 0.00 10^3/uL (0-0.01) 09/12/17 23:35 Immature Gran % 0.3 % (0.0-1.1) 09/12/17 23:35 Immature Gran # 0.02 10^3/uL (0.00-0.10) 09/12/17 23:35 PT 14.0 SEC (12.0-15.0) 09/12/17 23:35 INR 1.06 (0.83-1.16) 09/12/17 23:35 APTT 27.4 SEC (23.0-38.0) 09/12/17 23:35 VBG Lactic Acid 1.5 mmol/L (0.7-2.1) 09/12/17 23:35 Sodium 142 mEq/L (135-145) 09/12/17 23:35 Potassium 4.6 mEq/L (3.5-5.2) 09/12/17 23:35 Chloride 105 mEq/L (97-110) 09/12/17 23:35 Carbon Dioxide 21 mEq/l (22-31) L 09/12/17 23:35 Anion Gap 16 mEq/L (8-16) 09/12/17 23:35 BUN 17 mg/dL (7-23) 09/12/17 23:35 Creatinine 0.8 mg/dL (0.7-1.3) 09/12/17 23:35 Estimated GFR > 60 09/12/17 23:35 Glucose 109 mg/dL (70-100) H 09/12/17 23:35 Calcium 8.6 mg/dL (8.5-10.4) 09/12/17 23:35 Total Bilirubin 1.2 mg/dL (0.1-1.4) 09/12/17 23:35 Conjugated Bilirubin 0.5 mg/dL (0.0-0.5) 09/12/17 23:35 Unconjugated Bilirubin 0.7 mg/dL (0.0-1.1) 09/12/17 23:35 AST 20 IU/L (17-59) 09/12/17 23:35 ALT 39 IU/L (21-72) 09/12/17 23:35 Alkaline Phosphatase 59 IU/L (38-126) 09/12/17 23:35 Total Protein 6.3 g/dL (6.3-8.2) 09/12/17 23:35 Albumin 3.7 g/dL (3.5-5.0) 09/12/17 23:35 Lipase 28 IU/L (23-300) 09/12/17 23:35 Imaging Review: Images personally reviewed on [facility] PACS agree with findings of air-fluid levels consistent with partial small-bowel obstruction Imaging Impressions Abdomen X-Ray 05/12/18 23:25 Impression: 1. Findings compatible with moderate partial SBO. Findings discussed with Daquan Garcia MD at 23:56 hour, 09/12/2017. Assessment & Plan Assessment: SBO (small bowel obstruction) (Acute) Coronary artery disease History of gastric carcinoid Osteo arthritis Insomnia Hypothyroidism Plan: Admit to the hospital for partial possible complete bowel obstruction due to his gastrectomy with Nick-en-Y reconstruction the patient may require laparotomy or laparoscopy for Young's type hernia. Initial decompression with NG tube has begun. We will do a full feeds CT scan in the morning with Gastrografin. Reassessment at that time will be done if the patient has no signs of acute obstruction promotility agent and food challenge will be done. The patient understands that he is at risk for needing operative decompression given his previous surgeries and failure at the [facility] to treat this conservatively. All questions were addressed
[2017-09-13] MEDS ORDERED: ONDANSETRON 4 MG/2 ML VIAL IVP PRN ×2 (01:21→14:37)
[2017-09-13] MEDS ORDERED: NITROGLYCERIN 0.4 MG BTL SL PRN (01:23)
[2017-09-13] MEDS: TEMAZEPAM 15 MG CAP PO PRN ×2 (02:00→22:27)
[2017-09-13] MEDS: D5W 1/2 NS W/ 20 KCl/L 1,000 ML IV SCH ×2 (02:00→12:08)
[2017-09-13] MEDS: LEVOTHYROXINE 112 MCG TAB PO SCH (05:15)
[2017-09-13] MEDS ORDERED: IOPAMIDOL (ISOVUE-300) 100 ML BTL ONE (08:53)
[2017-09-13] MEDS ORDERED: LIDOCAINE 1% 300 MG/30 ML SDV ONE (13:26)
[2017-09-13] MEDS ORDERED: BUPIVACAINE 0.5% 30 ML SDV ONE (13:26)
[2017-09-13] MEDS ORDERED: HYDROmorphONE/DILAUDID 2 MG/ML INJ ONE ×2 (13:29→15:36)
[2017-09-13] MEDS ORDERED: fentaNYL 100 MCG/2 ML INJ ONE ×2 (13:29)
[2017-09-13] MEDS ORDERED: PROPOFOL 200 MG/20 ML VIAL ONE (13:30)
[2017-09-13] MEDS ORDERED: ceFAZolin 2 GM/SWFI 2 GM/20 ML SYR IVP ONE (13:59)
--- NOTE | 2017-09-13 13:59 | PDANEPAE ---
ANE History of Present Illness SBO ANE Past Medical History - Cardiovascular History Hx Hypertension: No Hx Arrhythmias: No Hx Chest Pain: Yes Hx Coronary Artery / Peripheral Vascular Disease: Yes Hx CHF / Valvular Disease: No Hx Palpitations: No Cardiovascular History Comment: ablation dr grigsby 07/14. 3 stents to LAD - Pulmonary History Hx COPD: No Hx Asthma/Reactive Airway Disease: No Hx Recent Upper Respiratory Infection: No Hx Oxygen in Use at Home: No Hx Sleep Apnea: Yes Sleep Apnea Screening Result - Last Documented: Positive - Neurologic History Hx Cerebrovascular Accident: No Hx Seizures: No Hx Dementia: No - Endocrine History Hx Diabetes: No - Renal History Hx Renal Disorders: Yes Renal History Comment: multiple kidney stone, obstructed kidney - Liver History Hx Hepatic Disorders: No - Neurological & Psychiatric Hx Hx Neurological and Psychiatric Disorders: Yes Neurological / Psychiatric History Comment: tremor to right hand when writing - Cancer History Hx Cancer: Yes Cancer History Comment: gastric carcinoid - Congenital Disorder History Hx Congenital Disorders: No - GI History Hx Gastrointestinal Disorders: Yes Gastrointestinal History Comment: refux occassionly - Other Health History Other Health History: pernicious anemia - Chronic Pain History Chronic Pain: No - Surgical History Prior Surgeries: tumor resection, sub total gastrectomy at [facility], pyloroplasty, cholecystectomy ANE Review of Systems Review of Systems: ANE Patient History - Allergies Allergies/Adverse Reactions: morphine Allergy (Verified 09/12/17 23:15) Itching - Home Medications Home Medications: Aspirin [Aspirin 81mg (*)] 81 mg PO HS 06/19/12 [Last Taken 09/10/17] Levothyroxine [Synthroid 112 mcg (*)] 112 mcg PO DAILY06 06/19/12 [Last Taken ] Tamsulosin HCl [Flomax 0.4 MG (*)] 0.4 mg PO HS 06/19/12 [Last Taken 09/10/17] Clopidogrel Bisulfate [Plavix (*)] 75 mg PO DAILY 08/27/16 [Last Taken 09/09/17] Cyanocobalamin [Vitamin B12 (*)] 2,500 mcg PO MOTUWETHFR 08/27/16 [Last Taken ] Herbals/Supplements -Info Only 1 ea PO DAILY 08/27/16 [Last Taken Unknown] Mirtazapine 15 mg PO Q4D 08/27/16 [Last Taken 09/08/17] Nitroglycerin [Nitrostat 0.4 mg (*)] 0.4 mg SL Q5M PRN 08/27/16 [Last Taken Unknown] - NPO status NPO Since - Liquids (Date): 09/16/17 NPO Since - Liquids (Time): 18:00 NPO Since - Solids (Date): 09/17/17 NPO Since - Solids (Time): 07:00 - Smoking Hx Smoking Status: Never smoked - Family Anes Hx Family Hx Anesthesia Complications: none ANE Labs/Vital Signs - Labs Result Diagrams: 09/12/17 23:35 09/12/17 23:35 - Vital Signs Blood Pressure: 158/81 Heart Rate: 57 Respiratory Rate: 16 O2 Sat (%): 93 Height: 177.8 cm Weight: 83.915 kg ANE Physical Exam - Airway Neck exam: FROM Mallampati Score: Class 2 Mouth exam: normal dental/mouth exam - Pulmonary Pulmonary: no respiratory distress - Cardiovascular Cardiovascular: regular rate and rhythym, no murmur, rub, or gallop - ASA Status ASA Status: III ANE Anesthesia Plan Anesthesia Plan: general endotracheal anesthesia
--- NOTE | 2017-09-13 14:02 | SOAPPROG ---
SOAP Progress Note Assessment/Plan: Assessment/Plan: Obstruction distal to mitchell-en-y anastomosis with proximal dilation of the duodenal limb CT reviewed with pt. Likely mechanical obstruction Laparotomy versus laparoscopy with possible bowel resection All questions addressed. Verbal confirmation of understanding TO OR for Laparotomy 09/13/17 14:00 Objective: Vital Signs Temp Pulse Resp BP Pulse Ox 37.2 C 57 L 16 158/81 H 93 09/13/17 13:23 09/13/17 13:59 09/13/17 13:59 09/13/17 13:59 09/13/17 13:59 09/12/17 09/13/17 09/14/17 05:59 05:59 05:59 Intake Total 1328 Output Total 200 300 Balance 1128 -300 PT 14.0 SEC (12.0-15.0) 09/12/17 23:35 INR 1.06 (0.83-1.16) 09/12/17 23:35 ICD10 Worksheet Patient Problems: Problems Problem Status Onset SBO (small bowel obstruction) Acute Chest pain Acute Chest pain Acute Coronary artery disease Acute
[2017-09-13] MEDS ORDERED: PROMETHAZINE HCL 25 MG/ML INJ IVP PRN (14:37)
[2017-09-13] MEDS ORDERED: HYDROmorphONE/DILAUDID 2 MG/ML INJ IVP PRN (14:37)
[2017-09-13] MEDS ORDERED: NALOXONE HCL 0.4 MG/ML INJ IVP PRN (14:37)
[2017-09-13] MEDS ORDERED: fentaNYL 100 MCG/2 ML INJ IVP PRN (14:37)
[2017-09-13] MEDS ORDERED: DEXAMETHASONE 4 MG/ML VIAL ONE (14:48)
[2017-09-13] MEDS ORDERED: SUGAMMADEX SODIUM 200 MG/2 ML VIAL IVP ONE (14:48)
[2017-09-13] MEDS ORDERED: ONDANSETRON 4 MG/2 ML VIAL ONE (14:48)
--- NOTE | 2017-09-13 15:06 | POSTOPPROG ---
Post Op Note Date of Operation: 09/13/17 Surgeon: Luc Aguilera Quality Measurement Specialist: Arron Nava Anesthesiologist: Arron Davidson Anesthesia: GET(General Endotracheal) Pre-op Diagnosis: SBO Post-op Diagnosis: adhesive SBO Procedure: Aparotomy Adhesiolysis Findings: transition point distal to anatomosis Inf/Abcess present in the surg proc area at time of surgery?: No Depth: Organ Space EBL: Minimal Complications: none Specimen(s): none
--- NOTE | 2017-09-13 15:13 | POSTANESTH ---
Post Anesthetic Evaluation Cardiovascular Status: Normal, Stable Respiratory Status: Normal, Stable Level of Consciousness/Mental Status: Can Participate in Eval Pain Control: Adequate, Prn Tx Ordered Nausea/Vomiting Control: Adequate, Prn Tx Ordered Complications Possibly Related to Anesthesia: None Noted
--- NOTE | 2017-09-13 15:29 | GOP ---
[f rep st] OPERATIVE REPORT DATE OF OPERATION: SURGEON: Luc Aguilera MD ROOFING LABORER: Perry Delaney MD. ANESTHESIA: General endotracheal anesthesia was used. ANESTHESIOLOGIST: Gumaro Davidson MD PREOPERATIVE DIAGNOSIS: Small bowel obstruction. POSTOPERATIVE DIAGNOSIS: Adhesive small bowel obstruction. PROCEDURE PERFORMED: FINDINGS: SPECIMENS: There were no specimens. ESTIMATED BLOOD LOSS: Less than 10 mL. INDICATIONS: This is a 72-year-old gentleman who presents with adhesive small bowel obstruction, lik jackie secondary to previous laparotomy, gastrectomy with Nick-en-Y reconstruction. DESCRIPTION OF PROCEDURE: The patient was brought to the operating room. After induction of endotra cheal anesthesia, in supine position, abdomen was prepped with chlorhexidine and draped sterilely. T glendy-out procedure was then performed according to institutional standards. Local anesthetic was infu sed in skin and subcutaneous tissues of the midline, and periumbilical incision was made. This was d eepened with electrocautery. The fascia was identified and divided sharply. Adhesions of the small bowel to the anterior abdominal wall were taken down sharply and with careful dissection, the anastom osis was identified. Interloop adhesions were taken down. The bowel was run distally from the ileoc ecal valve back to the anastomosis, proximally to the gastric limb and the duodenal sweep. After dec ompression in these areas and ensuring there was good flow, the abdomen was inspected for bleeding. Hemostasis was assured. The fascia was then reapproximated using #1 PDS, and the skin was reapproxim ated using 3-0 Vicryl and then a running subcuticular Monocryl suture. Dermabond was applied. The p atient was awakened, extubated, and taken to recovery room in stable condition. Needle, instrument a nd sponge counts had been verified to be correct x2. /[id number]/MODL
[2017-09-13] MEDS ORDERED: D5W 1/2 NS 1,000 ML IV SCH (16:00)
--- NOTE | 2017-09-13 16:00 | ASMTCMCOM ---
CM Note CM Note Notes: Pt was admitted with a SBO. He is s/p expl lap. He has a ANDRE planned with Dr Lassiter this Thursday which will mostly likely be delayed. No PT/OT ordered. Pt is currently obs status - anticipate d/c with no CM needs but will continue to follow for any change in needs. Date Signed: 09/13/2017 04:00 PM Electronically Signed By:ARMANDO Johnson
--- NOTE | 2017-09-13 17:19 | PDMN ---
Medical Necessity Medical necessity: C/M review: est. > 2 MN LOS for eval and treat acute and persistent small bowel obstruction distal to mitchell-en-y anastomosis with proximal dilation to the duodenal limb, requiring 09/13/2017 surgery - exploratory laparotomy and adhesiolysis (lysis of adhesions) -(Inpatient only surgery per Medicare guidelines), findings: transition point distal to anastomosis, postop diagnosis, adhesive small bowel obstruction, ongoing postop IV fluids per 09/03/2017 progress note, surgery postop report.
[2017-09-13] MEDS: TAMSULOSIN HCL 0.4 MG CAP PO SCH (20:09)
[2017-09-14] MEDS: LEVOTHYROXINE 112 MCG TAB PO SCH (06:14)
[2017-09-14] MEDS ORDERED: IBUPROFEN 600 MG TAB PO PRN (09:54)
[2017-09-14] MEDS ORDERED: ACETAMINOPHEN 325 MG TAB PO PRN (09:54)
--- NOTE | 2017-09-14 09:58 | SOAPPROG ---
SOAP Progress Note Assessment/Plan: Assessment/Plan: POD#1 s/p ex-lap YULI for adhesive SBO Lynette clears with ng clamped o/n Pain with sitting up RRR CTA incision c/d No peripheral edema Doing well post laparotomy Adv diet Oral analgesics Encourage IS/ambulation Anticipate d/c tomorrow. Plavix resumption in 5 days unless orthopedic surgery still planned 09/14/17 09:56 Objective: Vital Signs Temp Pulse Resp BP Pulse Ox 37.0 C 52 L 14 120/68 92 09/14/17 07:53 09/14/17 07:53 09/14/17 07:53 09/14/17 07:53 09/14/17 08:48 09/13/17 09/14/17 09/15/17 05:59 05:59 05:59 Intake Total 1328 3053 Output Total 200 2625 Balance 1128 428 PT 14.0 SEC (12.0-15.0) 09/12/17 23:35 INR 1.06 (0.83-1.16) 09/12/17 23:35 ICD10 Worksheet Patient Problems: Problems Problem Status Onset SBO (small bowel obstruction) Acute Chest pain Acute Chest pain Acute Coronary artery disease Acute
[2017-09-14] MEDS ORDERED: MIRTAZAPINE 15 MG TAB PO SCH (10:00)
[2017-09-14] MEDS: CYANO/VITAMIN B12 1000 MCG TAB PO SCH (10:41)
[2017-09-14] MEDS: oxyCODONE IR 5 MG TAB PO PRN ×2 (10:42→15:08)
--- NOTE | 2017-09-14 14:05 | ASMTCMCOM ---
CM Note CM Note Notes: Spoke with patient's nurse who states patient is recovering well from surgery and does not have any d/c needs at this time. Patient most likely will d/c home independently tomorrow. Patient's has been with him during this visit. No further needs. CM available if needs arise. Date Signed: 09/14/2017 02:05 PM Electronically Signed By:Luz Mireles LCSW
--- NOTE | 2017-09-14 14:56 | ASMTCMCOM ---
CM Note CM Note Notes: CM spoke w/ Rubi, RN and Troy, pharmacist regarding d/c POC. Pt had a PICC line placed on 08/13/17 to have TPN. It is uncertain if pt will d/c with it. CM to follow. Plan: CAROLINE, PT, OT, RN Date Signed: 09/14/2017 02:56 PM Electronically Signed By:FAVIAN Martell
[2017-09-14] MEDS: HYDROmorphONE/DILAUDID 1 MG/ML INJ IVP PRN ×2 (15:36→20:40)
[2017-09-14] MEDS: TAMSULOSIN HCL 0.4 MG CAP PO SCH (20:40)
[2017-09-14] MEDS ORDERED: ASPIRIN 81 MG CHEWABLE TAB PO SCH (21:00)
[2017-09-14] MEDS: TEMAZEPAM 15 MG CAP PO PRN (23:45)
[2017-09-15] MEDS: LEVOTHYROXINE 112 MCG TAB PO SCH (04:56)
[2017-09-15 07:19] VITALS: BP 145/77
[2017-09-15] MEDS ORDERED: ATORVASTATIN CALCIUM 40 MG TAB PO SCH (09:00)
[2017-09-15] MEDS: CYANO/VITAMIN B12 1000 MCG TAB PO SCH (10:15)
== END 2017-09-15 13:05 | disposition home or self-care (01) | DRG 337 ==
LOC: OBSVTOIN 09-13 00:05 → F3E 09-13 01:27
PROVIDERS: ADMIT Surgery; ATTEND Surgery
PROC: 0DN80ZZ Release Small Intestine, Open Approach (ICD-10-PCS; principal; 2017-09-13 13:45)
DX: K56.50 Intestinal adhesions [bands], unspecified as to partial versus complete obstruction (principal); I25.10 Atherosclerotic heart disease of native coronary artery without angina pectoris; E03.9 Hypothyroidism, unspecified; E78.00 Pure hypercholesterolemia, unspecified; Z85.030 Personal history of malignant carcinoid tumor of large intestine; Z95.5 Presence of coronary angioplasty implant and graft
CPT/HCPCS: 96374; J0690; J1100; J1170; J1200; J2405; J2704; J3010; Q9967

== ENCOUNTER 2018-02-02 06:35 | Inpatient (IN) | payer OTHER, MEDICARE ==
[2018-02-02] MEDS ORDERED: MAG HYDROX/AL HYDROX/SIMETH 30 ML UDCUP PO ONE (07:08)
[2018-02-02] MEDS ORDERED: HYOSCYAMINE SULFATE 0.125 MG TAB PO ONE (07:08)
[2018-02-02] MEDS ORDERED: NS 1,000 ML IV ONE (07:08)
[2018-02-02] MEDS ORDERED: LIDOCAINE 2% VISCOUS 15 ML UDCUP PO ONE (07:08)
--- NOTE | 2018-02-02 07:13 | EDPHY ---
H & P Stated Complaint: CP worsening over few days Time Seen by Provider: 02/02/18 07:03 HPI/ROS: CHIEF COMPLAINT: Epigastric burning HISTORY OF PRESENT ILLNESS: The patient is a 72-year-old man who comes to the emergency department complaining of epigastric burning that began about 24 hr ago. It improves with nitroglycerin. He has a history of SVT post ablation as well as 3 stents placed in his LAD most recently in 2017. 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 He had lysis of adhesions 1 month ago at the [facility]. He was told that he would never have peptic ulcer disease because of an injury to his vagus nerve. No fevers. No shortness of breath. No radiation of the pain to his neck arms or back. Severity: Moderate Modifying factors: Improves with nitroglycerin REVIEW OF SYSTEMS: Constitutional: denies: chills, fever, recent illness, recent injury EENTM: denies: blurred vision, double vision, nose congestion Respiratory: denies: cough, shortness of breath Cardiac: See HPI denies: irregular heart rate, lightheadedness, palpitations Gastrointestinal/Abdominal: See HPI denies: diarrhea, nausea, vomiting, blood streaked stools Genitourinary: denies: dysuria, frequency, hematuria, pain Musculoskeletal: denies: joint pain, muscle pain Skin: denies: lesions, rash, jaundice, bruising Neurological: denies: headache, numbness, paresthesia, tingling, dizziness, weakness Hematologic/Lymphatic: denies: blood clots, easy bleeding, easy bruising Immunologic/allergic: denies: HIV/AIDS, transplant 10 systems reviewed and negative except as noted EXAM: GENERAL: Well-appearing, well-nourished and in no acute distress. HEAD: Atraumatic, normocephalic. EYES: Pupils equal round and reactive to light, extraocular movements intact, sclera anicteric, conjunctiva are normal. ENT: TMs normal, nares patent, oropharynx clear without exudates. Moist mucous membranes. NECK: Normal range of motion, supple without lymphadenopathy or JVD. LUNGS: Breath sounds clear to auscultation bilaterally and equal. No wheezes rales or rhonchi. HEART: Regular rate and rhythm without murmurs, rubs or gallops. ABDOMEN: Soft, nontender, normoactive bowel sounds. No guarding, no rebound. No masses appreciated. BACK: No CVA tenderness, no spinal tenderness, step-offs or deformities EXTREMITIES: Normal range of motion, no pitting or edema. No clubbing or cyanosis. NEUROLOGICAL: Cranial nerves II through XII grossly intact. Normal speech, normal gait. 5/5 strength, normal movement in all extremities, normal sensation , normal reflexes PSYCH: Normal mood, normal affect. SKIN: Warm, dry, normal turgor, no visible rashes or lesions. 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 HAD PYROPLASTY AND CHASTITY EN Y , BOWEL OBSTRUCTIONS - Social History Smoking Status: Never smoked Constitutional: Initial Vital Signs Temperature (C) 36.6 C 02/02/18 06:36 Heart Rate 85 02/02/18 06:36 Respiratory Rate 16 02/02/18 06:36 Blood Pressure 137/69 H 02/02/18 06:36 O2 Sat (%) 96 02/02/18 06:36 O2 Delivery Mode Room Air Allergies/Adverse Reactions: morphine Allergy (Verified 02/02/18 06:36) Itching Home Medications: Medication Instructions Recorded Aspirin [Aspirin 81mg (*)] 81 mg PO DAILY 02/02/18 Atorvastatin Calcium [Lipitor 40 40 mg PO DAILY 02/02/18 mg (*)] Clopidogrel Bisulfate [Clopidogrel] 75 mg PO DAILY 02/02/18 Cyanocobalamin (Vitamin B-12) 2,500 mcg PO DAILY 02/02/18 [Vitamin B12] Herbals/Supplements -Info Only 1 ea PO DAILY 02/02/18 Levothyroxine [Synthroid 112 mcg 112 mcg PO DAILY06 02/02/18 (*)] Mirtazapine 15 mg PO HS PRN 02/02/18 Nitrofurantoin Macrobid [Macrobid] 100 mg PO BID 02/02/18 Nitroglycerin [Nitrostat 0.4 mg 0.4 mg SL Q5M PRN 02/02/18 (*)] Tamsulosin HCl [Flomax 0.4 MG (*)] 0.4 mg PO DAILY 02/02/18 Medical Decision Making - Diagnostics EKG Interpretation: An EKG obtained and was read and documented in trace view. Please see trace view for full reading and report. Sinus rhythm, no acute ischemic changes Imaging Results: Imaging Impressions Chest X-Ray 02/02/18 06:55 Impression: 1. Free intraperitoneal air suggesting bowel perforation. The patient will undergo CT abdomen pelvis. 2. Additional findings as above. Findings discussed with Mukund Turcios 02/02/2018 at 8:31. Chest/Thorax CTA 02/02/18 07:41 Impression: 1. Moderate pneumoperitoneum, more than usual for surgery 10 days ago, raises the concern for perforated viscus. No discernible defect can be identified; however, if there is a leak it would more likely be from loops of bowel in the upper central abdomen. 2. Normal caliber atherosclerotic thoracic and abdominal aorta. No dissection, penetrating ulcer, or aneurysm. 3. No acute pulmonary embolic disease. 4. Small bilateral pleural effusions and minimal bibasilar atelectasis. 5. Trace free fluid in the low pelvis. No intraperitoneal abscess. 6. No obstruction or adynamic ileus. Findings discussed with Emergency Department physician, Dr. Mukund Turcios on February 02, 2018 at 1000 hours. Abdomen/Pelvis CTA 02/02/18 08:29 Impression: 1. Moderate pneumoperitoneum, more than usual for surgery 10 days ago, raises the concern for perforated viscus. No discernible defect can be identified; however, if there is a leak it would more likely be from loops of bowel in the upper central abdomen. 2. Normal caliber atherosclerotic thoracic and abdominal aorta. No dissection, penetrating ulcer, or aneurysm. 3. No acute pulmonary embolic disease. 4. Small bilateral pleural effusions and minimal bibasilar atelectasis. 5. Trace free fluid in the low pelvis. No intraperitoneal abscess. 6. No obstruction or adynamic ileus. Findings discussed with Emergency Department physician, Dr. Mukund Turcios on February 02, 2018 at 1000 hours. Imaging: Discussed imaging studies w/ clinching machine operator Radiologist ED Course/Re-evaluation: 7:30 a.m. Originally the patient told me he had is abdominal surgery a month ago. After last few more questions it sounds as though it has only been 2 weeks. It was January 21. He does have free on a CT scan but is abdominal exam is somewhat reassuring. I would like to admit him for further observation of this as well as his epigastric burning that resolved with nitroglycerin. I have paged hospital service and surgical service. I spoke with Dr. Ferrari who will consult but would offer Dr. Chan for stridor futile. I have paged Dr. Chan. 10:00 a.m. I discussed the case with Rachel who will accept to the medical service. 10:[address] Ferrari is here to evaluate the patient. He asked that we also called Dr. Aguilera. The patient states that Dr. Aguilera operated on him a few months ago for small-bowel obstruction. Dr. Aguilera stated that he would like Dr. Ferrari to consult and will be available as well if needed. Differential Diagnosis: Partial list of the Differential diagnosis considered include but were not limited to; peptic ulcer disease, acute coronary disease, reflux, perforation and although unlikely based on the history and physical exam, I also considered ischemia, infection. - Data Points Laboratory Results: Laboratory Results 02/02/18 07:02 02/02/18 07:02 02/02/18 02/02/18 02/02/18 08:25 07:17 07:12 WBC RBC Hgb POC Hgb 11.6 gm/dL L gm/dL (13.7-17.5) Hct POC Hct 34 % L % (40-51) MCV MCH MCHC RDW Plt Count MPV Neut % (Auto) Lymph % (Auto) [place] % (Auto) Eos % (Auto) Baso % (Auto) Nucleat RBC Rel Count Absolute Neuts (auto) Absolute Lymphs (auto) Absolute Monos (auto) Absolute Eos (auto) Absolute Basos (auto) Absolute Nucleated RBC Immature Gran % Immature Gran # PT INR APTT D-Dimer POC Sodium 139 mEq/L mEq/L (135-145) Sodium POC Potassium 3.3 mEq/L mEq/L (3.3-5.0) Potassium POC Chloride 99 mEq/L mEq/L (97-110) Chloride Carbon Dioxide Anion Gap POC BUN 6 mg/dL L mg/dL (7-23) BUN Creatinine POC Creatinine 0.7 mg/dL mg/dL (0.7-1.3) Estimated GFR Glucose POC Glucose 100 mg/dL mg/dL (70-100) Calcium Total Bilirubin Conjugated Bilirubin Unconjugated Bilirubin AST ALT Alkaline Phosphatase POC Troponin I 0.00 ng/mL ng/mL (0.00-0.08) Total Protein Albumin Lipase Urine Color ANDRY Urine Appearance HAZY Urine pH 6.0 (5.0-7.5) Ur Specific [place] 1.023 (1.002-1.030) Urine Protein 1+ H (NEGATIVE) Urine Ketones NEGATIVE (NEGATIVE) Urine Blood NEGATIVE (NEGATIVE) Urine Nitrate NEGATIVE (NEGATIVE) Urine Bilirubin NEGATIVE (NEGATIVE) Urine Urobilinogen 4.0 EU H EU (0.2-1.0) Ur Leukocyte Esterase NEGATIVE (NEGATIVE) Urine RBC 1-3 /hpf /hpf (0-3) Urine WBC 10-15 /hpf H /hpf (0-3) Ur Epithelial Cells TRACE /lpf /lpf (NONE-1+) Urine Mucus 2+ /lpf H /lpf (NONE-1+) Urine Glucose NEGATIVE (NEGATIVE) 02/02/18 02/02/18 02/02/18 07:08 07:02 07:02 WBC 11.21 10^3/uL H 10^3/uL (3.80-9.50) RBC 3.66 10^6/uL L 10^6/uL (4.40-6.38) Hgb 11.3 g/dL L g/dL (13.7-17.5) POC Hgb Hct 33.8 % L % (40.0-51.0) POC Hct MCV 92.3 fL fL (81.5-99.8) MCH 30.9 pg pg (27.9-34.1) MCHC 33.4 g/dL g/dL (32.4-36.7) RDW 13.4 % % (11.5-15.2) Plt Count 313 10^3/uL 10^3/uL (150-400) MPV 9.5 fL fL (8.7-11.7) Neut % (Auto) 76.5 % H % (39.3-74.2) Lymph % (Auto) 10.8 % L % (15.0-45.0) [place] % (Auto) 7.0 % % (4.5-13.0) Eos % (Auto) 5.1 % % (0.6-7.6) Baso % (Auto) 0.2 % L % (0.3-1.7) Nucleat RBC Rel Count 0.0 % % (0.0-0.2) Absolute Neuts (auto) 8.59 10^3/uL H 10^3/uL (1.70-6.50) Absolute Lymphs (auto) 1.21 10^3/uL 10^3/uL (1.00-3.00) Absolute Monos (auto) 0.78 10^3/uL 10^3/uL (0.30-0.80) Absolute Eos (auto) 0.57 10^3/uL H 10^3/uL (0.03-0.40) Absolute Basos (auto) 0.02 10^3/uL 10^3/uL (0.02-0.10) Absolute Nucleated RBC 0.00 10^3/uL 10^3/uL (0-0.01) Immature Gran % 0.4 % % (0.0-1.1) Immature Gran # 0.04 10^3/uL 10^3/uL (0.00-0.10) PT 13.5 SEC SEC (12.0-15.0) INR 1.01 (0.83-1.16) APTT 29.2 SEC SEC (23.0-38.0) D-Dimer 2.78 ug/mLFEU H ug/mLFEU (0.00-0.50) POC Sodium Sodium 138 mEq/L mEq/L (135-145) POC Potassium Potassium 3.6 mEq/L mEq/L (3.3-5.0) POC Chloride Chloride 101 mEq/L mEq/L (97-110) Carbon Dioxide 30 mEq/l mEq/l (22-31) Anion Gap 7 mEq/L L mEq/L (8-16) POC BUN BUN 8 mg/dL mg/dL (7-23) Creatinine 0.6 mg/dL L mg/dL (0.7-1.3) POC Creatinine Estimated GFR > 60 Glucose 98 mg/dL mg/dL (70-100) POC Glucose Calcium 8.4 mg/dL L mg/dL (8.5-10.4) Total Bilirubin 0.9 mg/dL mg/dL (0.1-1.4) Conjugated Bilirubin 0.2 mg/dL mg/dL (0.0-0.5) Unconjugated Bilirubin 0.7 mg/dL mg/dL (0.0-1.1) AST 20 IU/L IU/L (17-59) ALT 39 IU/L IU/L (21-72) Alkaline Phosphatase 79 IU/L IU/L (38-126) POC Troponin I Total Protein 5.4 g/dL L g/dL (6.3-8.2) Albumin 2.9 g/dL L g/dL (3.5-5.0) Lipase 34 IU/L IU/L (23-300) Urine Color Urine Appearance Urine pH Ur Specific [place] Urine Protein Urine Ketones Urine Blood Urine Nitrate Urine Bilirubin Urine Urobilinogen Ur Leukocyte Esterase Urine RBC Urine WBC Ur Epithelial Cells Urine Mucus Urine Glucose Medications Given: Hydromorphone HCl (Dilaudid) 0.4 mg IVP Q4HRS PRN PRN Reason: Pain, Severe Unable to Take PO Stop: 02/12/18 10:25 Last Admin: 02/02/18 13:56 Dose: 0.4 mg Sodium Chloride (Ns) 1,000 mls @ 125 mls/hr IV CONT ARMIN Stop: 08/01/18 10:29 Last Admin: 02/02/18 11:55 Dose: 1,000 mls Discontinued Medications Al Hydroxide/Mg Hydroxide (Maalox Susp) 30 ml PO ONCE ONE Stop: 02/02/18 07:09 Last Admin: 02/02/18 07:40 Dose: 30 ml Hyoscyamine Sulfate (Levsin, Hyomax-Sl) 0.25 mg PO ONCE ONE Stop: 02/02/18 07:09 Last Admin: 02/02/18 07:40 Dose: 0.25 mg Sodium Chloride (Ns) 1,000 mls @ 0 mls/hr IV EDNOW ONE; Wide Open PRN Reason: Protocol Stop: 02/02/18 07:09 Last Admin: 02/02/18 07:33 Dose: 1,000 mls Influenza Virus Vaccine Quadrival (Flulaval Quad [id number] (6mo+)) 0.5 ml IM .ONCE ONE Stop: 02/02/18 11:52 Last Admin: 02/02/18 12:29 Dose: 0.5 ml Lidocaine (Lidocaine 2% Viscous) 15 ml PO ONCE ONE Stop: 02/02/18 07:09 Last Admin: 02/02/18 07:40 Dose: 15 ml Pneumococcal 13-Valent Conj Vacc (Prevnar 13 Syringe) 0.5 ml IM .ONCE ONE Stop: 02/02/18 11:52 Last Admin: 02/02/18 12:33 Dose: 0.5 ml Point of Care Test Results: Chemistry 02/02/18 02/02/18 07:17 07:12 POC Sodium 139 mEq/L mEq/L (135-145) POC Potassium 3.3 mEq/L mEq/L (3.3-5.0) POC Chloride 99 mEq/L mEq/L (97-110) POC BUN 6 mg/dL L mg/dL (7-23) POC Creatinine 0.7 mg/dL mg/dL (0.7-1.3) POC Glucose 100 mg/dL mg/dL (70-100) POC Troponin I 0.00 ng/mL ng/mL (0.00-0.08) ISTAT H&H 02/02/18 07:12 POC Hgb 11.6 gm/dL L gm/dL (13.7-17.5) POC Hct 34 % L % (40-51) Departure - Departure Disposition: [facility] Inpatient Acute Clinical Impression: Epigastric pain Condition: Fair
--- NOTE | 2018-02-02 07:14 | CPEKG ---
Test Reason : OPEN Blood Pressure : / mmHG Vent. Rate : 075 BPM Atrial Rate : 075 BPM P-R Int : 174 ms QRS Dur : 079 ms QT Int : 539 ms P-R-T Axes : -03 -08 059 degrees QTc Int : 603 ms Sinus rhythm Anteroseptal infarct, old Prolonged QT interval Confirmed by Mukund Turcios ([id number]) on 02/02/2018 7:13:42 AM Referred By: Confirmed By:Mukund Turcios
[2018-02-02 07:19] LABS: PLATELET COUNT 313 10^3/uL (150-400)
[2018-02-02 07:34] LABS: INR 1.01 (0.83-1.16); PROTIME(PATIENT) 13.5 SEC (12.0-15.0)
[2018-02-02] MEDS ORDERED: IOPAMIDOL (ISOVUE 370) 100 ML BTL IV ONE (08:03)
[2018-02-02] MEDS ORDERED: ONDANSETRON 4 MG/2 ML VIAL IVP PRN (10:26)
[2018-02-02] MEDS ORDERED: HYDROmorphONE/DILAUDID 1 MG/ML INJ IVP PRN (10:26)
[2018-02-02] MEDS ORDERED: PNEUMOC 13-VAL CONJ-DIP CRM/PF 0.5 ML SYR IM ONE (11:51)
[2018-02-02] MEDS: NS 1,000 ML IV SCH (11:55)
--- NOTE | 2018-02-02 12:14 | GHP ---
DATE OF ADMISSION: 02/02/2018 ADMITTING DIAGNOSES: 1. Intraabdominal free air of minimal significance. 2. Angina, status post stent placement. HISTORY: The patient is a 72-year-old white male, who has had a complicated surgical history. 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 He was told he might have delayed gastric emptying and did have in fact vomiting on a regular basis. In 1997, he underwent a pyloroplasty and cholecystectomy. This resulted in more prompt vomiting 3 to 5 times per day. He went to [facility] and had quarterly endoscopies every 5 years, and multiple precancerous and pre-carcinoid tumors were removed. He was started on octreotide monthly for 3 years. In 2004, he underwent a subtotal gastrectomy with a Nick-en-Y anastomosis. In 2015, he had a bowel obstruction treated without surgery. In 2017, he had a bowel obstruction treated with an NG tube in [place]. He flew back to [place] and underwent a lysis of adhesions. He had continued symptoms and went to [facility]. At that point, they felt that there was a narrowing at the Nick-en-Y anastomosis. They wanted him to stay on clear liquids for 6 months. He had a 40-pound weight loss on his liquid diet. He was operated on at the [facility] on January 21. Note that surgery had been delayed because of unrecognized Plavix dosing. On the , he was still throwing up again. He also complained of chest pain. Note is made that he had 2 stents placed in May 2014 and an additional stent placed in August of that year. This morning, he had severe epigastric and chest pain at 4:30 in the morning, which was relieved with 1 nitroglycerin. He came to the hospital, had another episode, and again that was relieved at 10:15 with nitroglycerin. He is being admitted to Medicine. Part of his evaluation included a chest x-ray , which showed intraabdominal free air. A CAT scan also showed intraabdominal free air. I was asked to see the patient to make sure this was not an additional issue. PAST MEDICAL HISTORY: He currently has a UTI for which he is taking Macrodantin , presumably due to a urinary catheter at [facility]. He does not smoke. He has not had anything to drink since September of this year. Morphine causes pruritus. CURRENT MEDICATIONS: Include Macrodantin b.i.d., levothyroxine 0.122 mcg every morning, tamsulosin 0.4 mg every evening, Nitrostat 0.4 mg as needed for chest pain, atorvastatin 40 mg every evening, clopidogrel 1 tablet every morning (75 mg), mirtazapine 15 mg 2 times per week for sleeping, baby aspirin 81 mg every evening, 2500 mcg of B12 five days per week (Thursday through Thursday), and Alteril 2 tablets 3 to 4 days p.r.n. for help sleeping (an herbal supplement). PAST SURGICAL HISTORY: Includes 2 knee surgeries, 3 shoulder surgeries, 2 kidney stones (one approach to remove a presumably ureteral stone and one surgery for an obstructed kidney). REVIEW OF SYSTEMS: He has no history of rheumatic fever, tuberculosis, hepatitis, or transfusions. He has a history of a detached vitreous, and that was just observed. He has dental crowns. He has been hypothyroid since 1985. He has a midsystolic click murmur. He has had a history of terminal dribbling and nocturia, which are now better with tamsulosin. PHYSICAL EXAMINATION: GENERAL: He is seen lying in bed, awake and alert, not complaining of pain. He is pleasant and conversant. He is oriented to person, place, and time. GCS is 15. NECK: Nontender. LUNGS: Clear to auscultation. CARDIAC: S1 and S2 are normal. I do not appreciate a click murmur. ABDOMEN : Not distended. Incision is well healed. With cough, he is tender to the left of the umbilicus and 2 fingerbreadths inferior at a level of 2/10 to 3/10. Other than that, his abdomen is truly quite soft. LABORATORIES: White count of 11.2 with 76% neutrophils, hematocrit 33, and his platelet count is 313,000. His INR is 1.01. His BUN is 6, and creatinine is 0.6. In his urine, he has 10 to 15 white cells per high-power field. IMPRESSION: I feel this is not an infradiaphragmatic problem, but rather more probably a supradiaphragmatic problem, and whether that is reflux or cardiogenic remains to be determined. /[id number]/MODL MTDD
[2018-02-02] MEDS ORDERED: NITROGLYCERIN 0.4 MG BTL SL PRN (16:17)
[2018-02-02] MEDS ORDERED: TAMSULOSIN HCL 0.4 MG CAP PO SCH (16:18)
--- NOTE | 2018-02-02 17:01 | CPEKG ---
Test Reason : OPEN Blood Pressure : / mmHG Vent. Rate : 060 BPM Atrial Rate : 060 BPM P-R Int : 186 ms QRS Dur : 082 ms QT Int : 422 ms P-R-T Axes : 057 012 044 degrees QTc Int : 422 ms Sinus rhythm Anteroseptal infarct, old compared with 02/02/2018 at 6:46 a.m. QT interval now shorter Confirmed by Isa Metzger ([id number]) on 02/02/2018 5:00:49 PM Referred By: Confirmed By:Isa Metzger
[2018-02-02] MEDS: PANTOPRAZOLE SODIUM 40 MG TAB PO SCH (20:41)
[2018-02-02] MEDS: ATORVASTATIN CALCIUM 40 MG TAB PO SCH (20:42)
[2018-02-02] MEDS: ASPIRIN 81 MG CHEWABLE TAB PO SCH (20:42)
[2018-02-02] MEDS: MIRTAZAPINE 15 MG TAB PO PRN (20:48)
[2018-02-02] MEDS: TAMSULOSIN HCL 0.4 MG CAP PO SCH (20:49)
[2018-02-02] MEDS ORDERED: NITROFURANTOIN MACROBID 100 MG CAP PO SCH (21:00)
[2018-02-03 04:12] LABS: PLATELET COUNT 287 10^3/uL (150-400)
[2018-02-03] MEDS: NS 1,000 ML IV SCH ×3 (04:52→22:08)
[2018-02-03] MEDS: LEVOTHYROXINE 112 MCG TAB PO SCH (06:26)
[2018-02-03] MEDS: PANTOPRAZOLE SODIUM 40 MG TAB PO SCH ×2 (08:38→21:29)
[2018-02-03] MEDS: CYANO/VITAMIN B12 1000 MCG TAB PO SCH (08:38)
[2018-02-03] MEDS: CLOPIDOGREL BISULFATE 75 MG TAB PO SCH (08:38)
[2018-02-03] MEDS ORDERED: REGADENOSON 0.4 MG/5 ML SYR IVP ONE (12:58)
--- NOTE | 2018-02-03 13:21 | GCON ---
DATE OF CONSULTATION: 02/03/2018 CHIEF COMPLAINT: We have been asked by Dr. Wall to evaluate the patient with a chief complaint of epigastric pain. HISTORY OF PRESENT ILLNESS: The patient is a 72-year-old gentleman with known coronary artery diseas e, as well as complicated gastrointestinal history, who presents with epigastric pain. Patient was i n his usual state of health until the day prior to admission, when he began to experience epigastric pain. The epigastric pain is described as a burning sensation without radiation. The pain is not as sociated with nausea, vomiting, or diaphoresis. The pain, however, is improved with sublingual nitro glycerin. The pain is not like his previous anginal pain which he describes as a sharp, stabbing sen sation in the epigastric region. Patient does have a previous history of coronary artery disease. I n 2014, he presented with an abnormal stress test and the stabbing epigastric pain. Cardiac catheter ization demonstrated disease involving the proximal left anterior descending coronary artery. Patien t was treated with percutaneous coronary intervention at that time using 2 drug-eluting stents. In 2 , he developed recurrent stabbing epigastric pain and was treated with a 3rd drug-eluting stent in the left anterior descending coronary artery. Patient also has a complicated gastrointestinal histo ry. In 1996, he underwent carcinoid resection of the stomach, as well as vagotomy. In 1997, he unde rwent pyloroplasty and cholecystectomy. In 2004, he underwent subtotal gastrectomy, followed by Nick -en-Y anastomosis. In 2015, he had a small bowel obstruction and was treated with lysis of adhesions . In 2017, he developed another small bowel obstruction and was treated with lysis of adhesions. PAST MEDICAL HISTORY: 1. Coronary artery disease. 2. Complex gastrointestinal history, as noted above. 3. Hypertension. 4. Hyperlipidemia. PAST SURGICAL HISTORY: 1. Status post knee surgery. 2. Status post shoulder surgery. 3. Status post kidney stones. MEDICATIONS: Please see medicine reconciliation form. ALLERGIES: Patient reports adverse drug reaction to metoprolol. SOCIAL HISTORY: Patient lives with his . He does not smoke. He does not consume alcohol. FAMILY HISTORY: Noncontributory. REVIEW OF SYSTEMS: Ten-point review of systems is negative, except as noted in HPI. Patient does re port a 40 pound weight loss secondary to reduced-calorie diet, as well as occasional episodes of swea ting at night. PHYSICAL EXAMINATION: GENERAL: Patient is resting comfortably in his chair. He does not appear to be in acute distress. VITAL SIGNS: Temperature is afebrile. Pulse is 67, blood pressure 133/69, re spiratory rate is 14, SaO2 is 94% on room air. HEENT: Normocephalic, atraumatic. Extraocular muscl es intact. NECK: No JVD. No bruits. LUNGS: Clear to auscultation bilaterally. CARDIOVASCULAR: Regular rate and rhythm. S1, S2. No murmurs, rubs, or gallops appreciated. ABDOMEN: Soft, nontend er. Normoactive bowel sounds. Evidence of previous scar from surgery. No hepatosplenomegaly noted. EXTREMITIES: Trace bilateral lower extremity edema. SKIN: No evidence of rashes. NEURO: Patien t is awake, alert, and oriented x3. LABORATORY: White blood cell count is 9.56, hemoglobin is 10.5, hematocrit is 31.5, platelet count i s 287. Chemistry: Sodium 136, potassium 3.8, chloride 105, CO2 26. BUN 6, creatinine 0.6. Troponi n within normal limits x3. EKG demonstrates sinus rhythm, anteroseptal Q-waves, nonspecific ST and T -wave changes. CT pulmonary angiogram is negative for thromboembolic disease. There is no evidence of aortic dissection. ASSESSMENT/PLAN: The patient is a 72-year-old gentleman with: 1. Epigastric pain. Patient presents with a burning epigastric pain. The pain is not like his prev ious angina which was described as a stabbing epigastric pain. The pain, however, is relieved with n itroglycerin. EKG demonstrates nonspecific ST and T-wave changes. Biomarkers are within normal limit s x3. Discussed options for risk stratification with patient and his including cardiac catheter ization and stress testing. At this time, will proceed with stress testing as he has not had further episodes of epigastric pain and his biomarkers are within normal limits. 2. Coronary artery disease. Patient has known coronary artery disease and is status post stenting o f his left anterior descending coronary artery in 2014, as well as 2017. He is on appropriate second karina prevention with aspirin, Plavix, and atorvastatin. He is not on beta sid therapy secondary t o previous adverse drug reaction. Will continue current medications. /[id number]/MODL
--- NOTE | 2018-02-03 13:52 | CPR ---
DATE OF PROCEDURE: 02/03/2018 PROCEDURE: Lexiscan nuclear stress test SUPERVISING PHYSICIAN: Jaciel Cortez MD ORDERING PHYSICIAN: Haile Montero MD REASON FOR TEST: 1. Chest pain. 2. Known coronary artery disease with past stents. Resting EKG shows a sinus rhythm with old anterior septal infarct, rate 68. There are no arrhythmias noted. Resting blood pressure 140/90. Resting oxygen saturation 94%. He is asymptomatic at this t glendy. STRESS PORTION: Lexiscan was injected rapidly, followed by saline flush. Cardiolite was then inject ed, followed by saline flush. He did feel mild shortness of breath with nausea after the injection. Peak blood pressure 150/78. Peak heart rate 102. Oxygen saturation remained at 97%. There were no EKG changes during stress portion. RECOVERY: He did spontaneously recover. There were no EKG changes. Blood pressure 132/70. Heart r ate 102. Oxygen saturation 97%. During the recovery, all symptoms did subside with no caffeine give n. At this time, he currently is stable for nuclear imaging. /[id number]/MODL
--- NOTE | 2018-02-03 15:52 | ASMTCMCOM ---
CM Note CM Note Notes: Pt is a 72 y/o man admitted for chest pain. Pt has a complicated medical hx (please see history and physical). Pt will most likely d/c independent when medically stable. No therapies ordered at this time. Pt has a supportive . CM available for changes. Plan: Independent Date Signed: 02/03/2018 03:51 PM Electronically Signed By:FAVIAN Martell
--- NOTE | 2018-02-03 16:24 | PDGENHP ---
History and Physical History and Physical: CC: Epigastric pain HISTORY: This patient comes in to the hospital this morning due to several recurrent episodes of burning epigastric discomfort, as well as some vomiting several episodes in the last 2 days. The patient has a long and very complicated history of abdominal GI and Cardiology illnesses but most recently after very prolonged set of symptoms he had been on several months of clear liquid diet and finally ended with a lysis of adhesions for partial bowel obstruction at [facility] on January 21. He remained in the hospital for a few days there having significant recovery with a long vertical incision. He returned here approximately a week ago. He was initially on a clear liquid diet. Somewhere around 4-5 days ago he started adding some small amounts of solid food. In the last 4 days he has had episodes of vomiting so somewhere around 5 the day before admission and 2 on this date of admission. Yesterday and today he has had several episodes of a burning epigastric pain not associated with any other symptoms. These, at rest, mostly when he is sittiing or lying down but once when he was standing. For each of these episodes he is taken sublingual nitroglycerin. The total duration of the episodes was usually around 8-10 minutes and he thinks that resolution of the episodes came within 6-8 minutes after taking 1 sublingual nitroglycerin. He does not feel any more bloated in his abdomen then he did previously after the surgery. He has been having some bowel movements at home since arriving back from surgery. There has been no blood in his vomit or stools and he has had no symptoms of fever and no measured temperature elevations at home. As far as his gastroenterology history he started with finding of a carcinoid in the stomach in 1996 which was resected. 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 Due to ongoing symptoms in 1997 he had pyloroplasty and cholecystectomy. Vomiting actually increased to 3 to 5 times per day after this. He travel to [facility] and follow their routinely worry head Q 3 month upper endoscopies, with removal of subsequent carcinoid and other possibly pre cancerous lesions. He did take octreotide for 3 years. However with ongoing symptoms in 2004 him had subtotal gastrectomy and Nick-en-Y procedure. Things seemed better after this but he did have a bowel obstruction in 2015, and again in 2016 leading to a surgery for adhesiolysis at this hospital. As symptoms persisted he was seen again at [facility] and they were concerned that he had stenosis or stricture at his Nick-en-Y anastomosis. He was placed on a clear liquid diet for 6 months with plans to come in and operate on the anastomosis. However he started having worsening symptoms and presented there last month on January 21 where he underwent laparotomy. Apparently there was not significant stricture at room why anastomosis but he had again adhesiolysis. After discharge from the hospital there he returned here approximately a week ago. Initially he was taking clear liquids and was doing reasonably well. However as above started having vomiting and epigastric pain episodes leading to this admission. All of this history is really given to me by the patient other than the records related to his surgery here in 2016 with adhesiolysis. Regarding his cardiac history in 2014 he had some episodes of epigastric sharp stabbing pain that led to stress test and there was some concern for abnormality there. He was referred to the hospital were angiography showed some stenoses of the left anterior descending and 2 stents were placed at that time. He came into the hospital non emergently but had some troponins done that were negative and EKGs nonischemic at the time. He came here again in 2016 with a couple more episodes of the same sharp stabbing pain, was admitted here with negative troponins and EKGs but had angiogram showing a slightly more distal LAD lesion that was stented at that time. All of his symptom episodes at those times were at rest. I reviewed all of his angiography images from before and after his stent placements from these [address] Jaciel Cortez today; angiographically these are not really severe lesions and probably would not have been expected by the appearance to of caused rest angina so whether his epigastric discomfort was related to his coronary findings or not is uncertain. In addition to all the above the patient noticed as he arrived home that he had difficulty emptying his bladder along with some urethral dysuria. He was seen at [facility] ER 2 days ago diagnosed with urinary tract infection and started on Macrobid which she has been taking without any improvement in his symptoms. He has not had fevers with this. Apparently cultures were done at the [facility]. 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 Rodriguez FAMILY MEDICAL HISTORY: Coronary disease in several family members SOCIAL HISTORY: lives with his No tobacco or alcohol MEDICATIONS: The patients list has been reconciled by our clinical pharmacist in the EMR. I have reviewed the list and ordered appropriate medicines. PHYSICAL EXAMINATION: Vital Signs: All normal without fever Gum Worker: Sinus rhythm Examination: General: alert, oriented, good mentation, relaxed Skin: warm, dry, good color, no rash HEENT: normal Neck: no mass or jvd Resps: relaxed Lungs: clear breath sounds Heart: regular, no murmur Abdomen: soft, nondistended, nontender, +BS, with excellent healing of his recent vertical midline surgical incision, no other palpable abnormalities Upper Extremities: normal Lower Extremities: no edema, warm No Bleeding or bruising Neurologic: normal speech/language, normal clinical education specialist, no focal weakness IV site: looks normal LABORATORY DATA: 1st troponin normal Unremarkable complete metabolic panel, normal lipase Mildly elevated white blood cell count, hemoglobin 11.3 normocytic with a baseline of 13 RADIOLOGY STUDIES: I reviewed images from CT scans of the chest and abdomen done in the ER today. There is no evidence of P E. There is a little free air in the abdomen but there is nothing to suggest obstruction, abscess, inflammation of any particular organ, bleeding, or any other significant intra-abdominal acute problem. Some vascular calcifications noted 12 LEAD EKG: Sinus rhythm with flat T-waves but nothing that appears ischemic on my review of the tracing from the ER ASSESSMENT: * several episodes of acute epigastric pain described as a burning that seem to her possibly response to nitroglycerin, with no other associated symptoms * status post adhesion lysis surgery 01/21 at [facility] in [place] with the he is in this centered around his Nick-en-Y limb from prior surgery * long history of cardiac abdominal and gastrointestinal illness and procedures as described above in detail in the presenting history * acute hospital associated urinary tract infection after his recent surgery * Cultures apparently done at [facility] 2 days ago * No response to Macrobid so far At this time there is no way to determine the cause of his presenting epigastric pain episodes. This could potentially be coronary related, however he has normal troponin EKG, this symptom is burning instead of sharp stabbing like he had with his prior angina episodes, and in reality looking at his previous angiograms before and after his stents it is not clear that his coronary disease was ever symptomatic or what his symptoms would be if it were. There is no evidence of obstruction, ileus, abscess, bleeding, or other problems on his CT scan after his recent abdominal surgery for adhesiolysis. More over his brief episodes of symptoms would not be consistent with any of these issues. With a subtotal gastrectomy and a history of vagotomy, the likelihood of acid related symptoms should be very low but it is not unheard of for patient's to have recurrent ulcers despite these prior surgeries. I reviewed his case in detail with Dr. Jaciel Cortez. The plan at this time will be to observe him carefully overnight here in the hospital with repeat troponins and EKGs and cardiac monitoring. If he has anything that looks concerning for ischemia will proceed to angiography. If there is no concerning findings will plan on a chemical nuclear stress test in the morning. Will continue a clear liquid diet at this time without caffeine. Distant case there is any acid related issue will give him some Protonix at this time. I have reviewed the patient's case in detail with Dr. Jaciel Cortez I have reviewed the patient's past medical records as part of this assessment, including previous admission records from this hospital as well as some records from the [facility] that he brought in
--- NOTE | 2018-02-03 19:15 | HOSPPROG ---
Hospitalist Progress Note Assessment/Plan: DIAGNOSES: * several episodes of acute epigastric pain described as a burning that seem to her possibly response to nitroglycerin, with no other associated symptoms * status post adhesion lysis surgery 01/21 at [facility] in [place] with the he is in this centered around his Nick-en-Y limb from prior surgery * Two brief of episodes of asymptomatic V-tach overnight * several episodes of sustained but asymptomatic SVT overnight, with prior history of ablation for symptomatic SVT * long history of cardiac abdominal and gastrointestinal illness and procedures as described above in detail in the presenting history in H&P * acute hospital associated urinary tract infection after his recent surgery * Cultures apparently done at [facility] 2 days ago * No response to Macrobid so far Notably regarding his arrhythmia is as above the patient tells me that he had a near syncopal spell that he thinks may have been medication induced but he can' t remember if he was taking Coreg or cardia at the time; did take each of those medicines at separate times PLANS: -I reviewed in detail with Dr. Jaciel Cortez. At this point with some arrhythmia , symptoms in the same location as his previous possible angina and mild but present abnormality on myocardial perfusion imaging, will plan on angiogram in the morning. -regarding management of his V-tach could consider use of a beta-sid but will need to have Dr. Cortez check back with Dr. Rodriguez's clinic records to see if we can determine what medicine the patient was taking when he had his near- syncope and whether it was truly felt to be related to his symptoms -regarding management of SVT as this is asymptomatic would take no action now unless becomes significantly symptomatic and very bothersome way -I reviewed his case in detail with his [facility] field services analyst Dr. Fermin at [phone]. Indeed the patient did have some significant distention of his 18 cm long Nick limb when he presented to them late last month. He had lysis of adhesions from around the Nick limb as well as from around the anastomosis and the remaining gastric remnant. Following this there was no distension and he had no complications of the surgery [address] Alfred is recommendations at this point I that have the patient resume a regular diet, try diaphragmatic breathing exercises if he has any nausea or pain episodes, and if his symptoms persist through next week consider performing a nuclear gastric emptying study with images up to 4 hr with a full meal consumed. SUBJECTIVE: Overnight he has had no recurrent symptoms and no new symptoms. He has tolerated taking a liquid diet without difficulty OBJECTIVE Vitals reviewed: All stable without fever Tennis Net Maker, my review: Primarily a sinus rhythm had, however has had a 6 beat run and 3 beat run of V-tach each with a different morphology both asymptomatic, as well as some episodes of SVT with heart rates in the 120s which were asymptomatic, and some moderate frequency PVCs and PACs with a few ventricular couplets. Exam: alert oriented relaxed skin warm dry color ok resps not labored lungs clear BSs heart regular abd soft nondistended nontender, bowel sounds present, incision looks good limbs warm, no edema iv site ok Repeat EKG again showing no ischemia Laboratory data: All troponins normal x3 Other labs stable with some improvement in the mild white count elevation Lexiscan stress: I reviewed myocardial perfusion imaging images with radiologist and Dr. Cortez. The patient does have some evidence of possible small inferolateral ischemic defect worse with stress. There is nothing in the anterior region where he has his prior stents. Objective: Vital Signs Temp Pulse Resp BP Pulse Ox 36.9 C 75 16 134/90 H 95 02/03/18 17:30 02/03/18 17:30 02/03/18 17:30 02/03/18 17:30 02/03/18 17:30 Laboratory Results 02/03/18 03:52 02/03/18 03:52 02/02/18 02/03/18 02/04/18 06:59 06:59 06:59 Intake Total 2232 5080 Output Total 300 Balance 1932 5080 PT 13.5 SEC (12.0-15.0) 02/02/18 07:08 INR 1.01 (0.83-1.16) 02/02/18 07:08 - Time Spent With Patient Time Spent with Patient: greater than 35 minutes Time Spent with Patient: Greater than 35 minutes spent on this patients care, greater than 50% of time spent counseling, educating, and coordinating care regarding the above mentioned plan. ICD10 Worksheet Patient Problems: Problems Problem Status Onset Epigastric pain Acute Chest pain Acute Chest pain Acute Coronary artery disease Acute SBO (small bowel obstruction) Acute
--- NOTE | 2018-02-03 19:19 | PDGENHP ---
History and Physical History and Physical: CC: Epigastric pain HISTORY: This patient comes in to the hospital this morning due to several recurrent episodes of burning epigastric discomfort, as well as some vomiting several episodes in the last 2 days. The patient has a long and very complicated history of abdominal GI and Cardiology illnesses but most recently after very prolonged set of symptoms he had been on several months of clear liquid diet and finally ended with a lysis of adhesions for partial bowel obstruction at [facility] on January 21. He remained in the hospital for a few days there having significant recovery with a long vertical incision. He returned here approximately a week ago. He was initially on a clear liquid diet. Somewhere around 4-5 days ago he started adding some small amounts of solid food. In the last 4 days he has had episodes of vomiting so somewhere around 5 the day before admission and 2 on this date of admission. Yesterday and today he has had several episodes of a burning epigastric pain not associated with any other symptoms. These, at rest, mostly when he is sittiing or lying down but once when he was standing. For each of these episodes he is taken sublingual nitroglycerin. The total duration of the episodes was usually around 8-10 minutes and he thinks that resolution of the episodes came within 6-8 minutes after taking 1 sublingual nitroglycerin. He does not feel any more bloated in his abdomen then he did previously after the surgery. He has been having some bowel movements at home since arriving back from surgery. There has been no blood in his vomit or stools and he has had no symptoms of fever and no measured temperature elevations at home. As far as his gastroenterology history he started with finding of a carcinoid in the stomach in 1996 which was resected. 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 Due to ongoing symptoms in 1997 he had pyloroplasty and cholecystectomy. Vomiting actually increased to 3 to 5 times per day after this. He travel to [facility] and follow their routinely worry head Q 3 month upper endoscopies, with removal of subsequent carcinoid and other possibly pre cancerous lesions. He did take octreotide for 3 years. However with ongoing symptoms in 2004 him had subtotal gastrectomy and Nick-en-Y procedure. Things seemed better after this but he did have a bowel obstruction in 2015, and again in 2016 leading to a surgery for adhesiolysis at this hospital. As symptoms persisted he was seen again at [facility] and they were concerned that he had stenosis or stricture at his Nick-en-Y anastomosis. He was placed on a clear liquid diet for 6 months with plans to come in and operate on the anastomosis. However he started having worsening symptoms and presented there last month on January 21 where he underwent laparotomy. Apparently there was not significant stricture at room why anastomosis but he had again adhesiolysis. After discharge from the hospital there he returned here approximately a week ago. Initially he was taking clear liquids and was doing reasonably well. However as above started having vomiting and epigastric pain episodes leading to this admission. All of this history is really given to me by the patient other than the records related to his surgery here in 2016 with adhesiolysis. Regarding his cardiac history in 2014 he had some episodes of epigastric sharp stabbing pain that led to stress test and there was some concern for abnormality there. He was referred to the hospital were angiography showed some stenoses of the left anterior descending and 2 stents were placed at that time. He came into the hospital non emergently but had some troponins done that were negative and EKGs nonischemic at the time. He came here again in 2016 with a couple more episodes of the same sharp stabbing pain, was admitted here with negative troponins and EKGs but had angiogram showing a slightly more distal LAD lesion that was stented at that time. All of his symptom episodes at those times were at rest. I reviewed all of his angiography images from before and after his stent placements from these [address] Jaciel Cortez today; angiographically these are not really severe lesions and probably would not have been expected by the appearance to of caused rest angina so whether his epigastric discomfort was related to his coronary findings or not is uncertain. In addition to all the above the patient noticed as he arrived home that he had difficulty emptying his bladder along with some urethral dysuria. He was seen at [facility] ER 2 days ago diagnosed with urinary tract infection and started on Macrobid which she has been taking without any improvement in his symptoms. He has not had fevers with this. Apparently cultures were done at the [facility]. 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 Rodriguez FAMILY MEDICAL HISTORY: Coronary disease in several family members SOCIAL HISTORY: lives with his No tobacco or alcohol MEDICATIONS: The patients list has been reconciled by our clinical pharmacist in the EMR. I have reviewed the list and ordered appropriate medicines. 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 There is no evidence of P E. There is a little free air in the abdomen but there is nothing to suggest obstruction, abscess, inflammation of any particular organ, bleeding, or any other significant intra-abdominal acute problem. Some vascular calcifications noted 12 LEAD EKG: Sinus rhythm with flat T-waves but nothing that appears ischemic on my review of the tracing from the ER ASSESSMENT: * several episodes of acute epigastric pain described as a burning that seem to her possibly response to nitroglycerin, with no other associated symptoms * status post adhesion lysis surgery 01/21 at [facility] in [place] with the he is in this centered around his Nick-en-Y limb from prior surgery * long history of cardiac abdominal and gastrointestinal illness and procedures as described above in detail in the presenting history * acute hospital associated urinary tract infection after his recent surgery * Cultures apparently done at [facility] 2 days ago * No response to Macrobid so far At this time there is no way to determine the cause of his presenting epigastric pain episodes. This could potentially be coronary related, however he has normal troponin EKG, this symptom is burning instead of sharp stabbing like he had with his prior angina episodes, and in reality looking at his previous angiograms before and after his stents it is not clear that his coronary disease was ever symptomatic or what his symptoms would be if it were. There is no evidence of obstruction, ileus, abscess, bleeding, or other problems on his CT scan after his recent abdominal surgery for adhesiolysis. More over his brief episodes of symptoms would not be consistent with any of these issues. With a subtotal gastrectomy and a history of vagotomy, the likelihood of acid related symptoms should be very low but it is not unheard of for patient's to have recurrent ulcers despite these prior surgeries. I reviewed his case in detail with Dr. Jaciel Cortez. The plan at this time will be to observe him carefully overnight here in the hospital with repeat troponins and EKGs and cardiac monitoring. If he has anything that looks concerning for ischemia will proceed to angiography. If there is no concerning findings will plan on a chemical nuclear stress test in the morning. Will continue a clear liquid diet at this time without caffeine. Distant case there is any acid related issue will give him some Protonix at this time. 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 Jaciel Cortez I have reviewed the patient's past medical records as part of this assessment, including previous admission records from this hospital as well as some records from the [facility] that he brought in
[2018-02-03] MEDS: ASPIRIN 81 MG CHEWABLE TAB PO SCH (21:29)
[2018-02-03] MEDS: ATORVASTATIN CALCIUM 40 MG TAB PO SCH (21:29)
[2018-02-03] MEDS: TAMSULOSIN HCL 0.4 MG CAP PO SCH (21:29)
[2018-02-03] MEDS: PHENAZOPYRIDINE HCL 100 MG TAB PO SCH (21:30)
[2018-02-03] MEDS: MIRTAZAPINE 15 MG TAB PO PRN (21:38)
[2018-02-04] MEDS: LEVOTHYROXINE 112 MCG TAB PO SCH (05:36)
[2018-02-04] MEDS: NS 1,000 ML IV SCH (05:37)
[2018-02-04] MEDS ORDERED: ASPIRIN EC 325 MG TAB PO ONE (08:25)
[2018-02-04] MEDS ORDERED: NS 1,000 ML IV ONE (08:25)
[2018-02-04] MEDS ORDERED: diphenhydrAMINE 25 MG CAP PO ONE (08:25)
[2018-02-04] MEDS ORDERED: DIAZEPAM 5 MG TAB PO ONE (08:25)
[2018-02-04] MEDS ORDERED: FAMOTIDINE 20 MG TAB PO ONE (08:25)
[2018-02-04] MEDS: PHENAZOPYRIDINE HCL 100 MG TAB PO SCH ×2 (08:48→16:44)
[2018-02-04] MEDS: PANTOPRAZOLE SODIUM 40 MG TAB PO SCH (08:50)
[2018-02-04] MEDS: CLOPIDOGREL BISULFATE 75 MG TAB PO SCH (08:50)
[2018-02-04] MEDS: CYANO/VITAMIN B12 1000 MCG TAB PO SCH (08:50)
[2018-02-04] MEDS ORDERED: PHENAZOPYRIDINE HCL 100 MG TAB PO SCH (09:00)
--- NOTE | 2018-02-04 09:05 | HOSPPROG ---
Hospitalist Progress Note Assessment/Plan: DIAGNOSES: * several episodes of acute epigastric pain described as a burning that seem to her possibly response to nitroglycerin, with no other associated symptoms * status post adhesion lysis surgery 01/21 at [facility] in [place] with the he is in this centered around his Nick-en-Y limb from prior surgery * Two brief of episodes of asymptomatic V-tach overnight * several episodes of sustained but asymptomatic SVT overnight, with prior history of ablation for symptomatic SVT * long history of cardiac abdominal and gastrointestinal illness and procedures as described above in detail in the presenting history in H&P * acute hospital associated urinary tract infection after his recent surgery * Cultures apparently done at [facility] 2 days ago * No response to Macrobid so far Notably regarding his arrhythmia is as above the patient tells me that he had a near syncopal spell that he thinks may have been medication induced but he can' t remember if he was taking Coreg or cardia at the time; did take each of those medicines at separate times PLANS: -Rreviewed in detail with Dr. Jaciel Cortez. At this point with some arrhythmia, symptoms in the same location as his previous possible angina and mild but present abnormality on myocardial perfusion imaging, will plan on angiogram this morning. -regarding management of his V-tach could consider use of a beta-sid but will need to have Dr. Cortez check back with Dr. Rodriguez's clinic records to see if we can determine what medicine the patient was taking when he had his near- syncope and whether it was truly felt to be related to his symptoms -regarding management of SVT as this is asymptomatic would take no action now unless becomes significantly symptomatic and very bothersome way -Dr. Wall reviewed his case in detail with his [facility] fuller brush worker Dr. Fermin at [phone]. Indeed the patient did have some significant distention of his 18 cm long Nikc limb when he presented to them late last month. He had lysis of adhesions from around the Nick limb as well as from around the anastomosis and the remaining gastric remnant. Following this there was no distension and he had no complications of the surgery [address] Alfred recommendations at this point is to have the patient resume a regular diet, try diaphragmatic breathing exercises if he has any nausea or pain episodes, and if his symptoms persist through next week consider performing a nuclear gastric emptying study with images up to 4 hr with a full meal consumed. Subjective: Patient reports he had a good nigh sleep last night. He tolerated diet with minimal symptoms last night as well. Objective: Vital Signs Temp Pulse Resp BP Pulse Ox 36.7 C 65 16 144/86 H 91 L 02/04/18 08:14 02/04/18 08:14 02/04/18 08:14 02/04/18 08:14 02/04/18 08:14 02/03/18 02/04/18 02/05/18 05:59 05:59 05:59 Intake Total 300 Balance 300 PT 13.5 SEC (12.0-15.0) 02/02/18 07:08 INR 1.01 (0.83-1.16) 02/02/18 07:08 - Physical Exam Constitutional: no apparent distress Eyes: PERRL Ears, Nose, Mouth, Throat: moist mucous membranes Cardiovascular: regular rate and rhythym Respiratory: no respiratory distress, clear to auscultation Gastrointestinal: normoactive bowel sounds Genitourinary: no bladder tenderness Skin: warm Musculoskeletal: no muscle tenderness Neurologic: AAOx3 Psychiatric: interacting appropriately ICD10 Worksheet Patient Problems: Problems Problem Status Onset Epigastric pain Acute Chest pain Acute Chest pain Acute Coronary artery disease Acute SBO (small bowel obstruction) Acute
--- NOTE | 2018-02-04 09:18 | PDMN ---
Medical Necessity Medical necessity: Change to IP, as of 02/03/18, per & MCG [id number]; los >2 mn for ongoing management of V-tach w/possible ischemia & UTI (awaiting cxs); requiring further cardiac monitoring, Cardiology consult w/angiogram & IV abx; complicated hx of abdominal GI & Cardiology illnesses w/recent lysis of adhesions for partial bowel obstruction
[2018-02-04 09:33] LABS: PLATELET COUNT 340 10^3/uL (150-400)
[2018-02-04 09:36] LABS: INR 1.15 (0.83-1.16); PROTIME(PATIENT) 14.9 SEC (12.0-15.0)
[2018-02-04] MEDS ORDERED: LIDOCAINE 1% 300 MG/30 ML SDV ONE (11:36)
[2018-02-04] MEDS ORDERED: fentaNYL 100 MCG/2 ML INJ ONE (11:37)
[2018-02-04] MEDS ORDERED: MIDAZOLAM 2 MG/2 ML VIAL ONE (11:37)
[2018-02-04] MEDS ORDERED: IOPAMIDOL (ISOVUE-370) 150 ML BTL IV ONE (11:37)
--- NOTE | 2018-02-04 11:58 | PDPROPOC ---
Sedation Plan of Care Sedation Plan of Care: vital signs stable, mental status noted, patient educated of risks, benefits, alternatives, patient can tolerate sedation ASA Classification: ASA 2 Planned drugs: fentanyl, midazolam Mallampati Score: Class 2 Mallampati Reference Image: Patient passed 3-3-2 rule?: Yes
[2018-02-04] MEDS ORDERED: ATROPINE SULFATE 1 MG/10 ML SYR IVP PRN (12:43)
--- NOTE | 2018-02-04 12:52 | CPIP ---
DATE OF PROCEDURE: 02/04/2018 PROCEDURE: 1. Coronary angiography. 2. Left ventriculography indication. INDICATION: 1. Known coronary artery disease, status post stenting of the proximal mid left anterior descending coronary artery. 2. Chest pain syndrome. 3. Abnormal nuclear stress test with inferolateral ischemia. ACCESS: Patient was prepped and draped in sterile fashion. 1% lidocaine was used to anesthetize the right inguinal region. A 6-Palauan introducer sheath was placed selectively into the right common fe moral artery via modified Seldinger technique. CORONARY ANGIOGRAPHY: A 6-Palauan JL4 was advanced to the left main coronary artery and images obtain ed. The left main coronary artery bifurcated into an LAD and circumflex coronary arteries. The left main coronary artery appeared normal. The left anterior descending coronary artery was previously s tented in the proximal mid segments. The previously placed stents were widely patent. The first spencer gonal artery was a small vessel. The first diagonal artery had a 60% ostial stenosis present. The s econd diagonal artery was a large vessel. The second diagonal artery appeared free of any significan t disease. The circumflex coronary artery was a moderate-sized vessel. The circumflex coronary melecio ry had mild diffuse disease in the proximal segments. There was no stenosis greater than 20%. 6-Palauan JR4 was advanced to the right coronary artery and images obtained. The right coronary arter y is dominant. The right coronary artery had mild diffuse disease in the proximal and mid vessel. T here was no stenosis greater than 20%. LEFT VENTRICULOGRAPHY: A 6-Palauan pigtail catheter was advanced to the left ventricle and images obt ained. Left ventricle is normal size, had normal systolic function. Estimated ejection fraction is 55%. COMPLICATIONS: None. CONCLUSIONS: 1. Patent left anterior descending stents with no evidence of in-stent restenosis. 2. Mild nonobstructive coronary artery disease without flow limitation. 3. Normal left ventricular size and systolic function. 4. Plan is for medical management. /[id number]/MODL
[2018-02-04 15:23] VITALS: BP 152/92
--- NOTE | 2018-02-04 15:49 | PDDCSUM ---
Discharge Summary Discharge Summary: Date of Admission: 02/02/2018 Date of Discharge: 02/04/2018 Consults: Cardiology Procedures: [facility] Hospital Course Problem List: DIAGNOSES: * several episodes of acute epigastric pain described as a burning that seem to her possibly response to nitroglycerin, with no other associated symptoms * status post adhesion lysis surgery 01/21 at [facility] in [place] with the he is in this centered around his Nick-en-Y limb from prior surgery * Two brief of episodes of asymptomatic V-tach overnight * several episodes of sustained but asymptomatic SVT overnight, with prior history of ablation for symptomatic SVT * long history of cardiac abdominal and gastrointestinal illness and procedures as described above in detail in the presenting history in H&P * acute hospital associated urinary tract infection after his recent surgery * Cultures apparently done at [facility] 2 days ago, s/p Keflex and Nitrofurantoin PLANS: -Mild but present abnormality on myocardial perfusion imaging, [facility] today with no flow limiting stenoses -regarding management of his V-tach could consider use of a beta-sid but will need to have Dr. Cortez check back with Dr. Rodriguez's clinic records to see if we can determine what medicine the patient was taking when he had his near- syncope and whether it was truly felt to be related to his symptoms, will f/u as outpatient with Dr. Mcdonald -regarding management of SVT as this is asymptomatic would take no action now unless becomes significantly symptomatic and very bothersome way -Dr. Wall reviewed his case in detail with his [facility] heel sander rubber Dr. Fermin at [phone]. Indeed the patient did have some significant distention of his 18 cm long Nick limb when he presented to them late last month. He had lysis of adhesions from around the Nick limb as well as from around the anastomosis and the remaining gastric remnant. Following this there was no distension and he had no complications of the surgery [address] Alfred recommendations at this point is to have the patient resume a regular diet, try diaphragmatic breathing exercises if he has any nausea or pain episodes, and if his symptoms persist through next week consider performing a nuclear gastric emptying study with images up to 4 hr with a full meal consumed. Time spent on discharge was >35 minutes with >50% of time spent on patient education/counseling
--- NOTE | 2018-02-04 16:03 | CPEKG ---
Test Reason : OPEN Blood Pressure : / mmHG Vent. Rate : 073 BPM Atrial Rate : 073 BPM P-R Int : 179 ms QRS Dur : 083 ms QT Int : 386 ms P-R-T Axes : 048 004 036 degrees QTc Int : 426 ms Sinus rhythm Probable anteroseptal infarct, old Confirmed by Isa Metzger ([id number] on 02/04/2018 4:03:36 PM Referred By: Confirmed By:Isa Metzger
[2018-02-04] MEDS ORDERED: SULFAMETHOX/TMP 800/160 MG 1 TAB PO SCH (21:00)
== END 2018-02-04 17:00 | disposition home or self-care (01) | DRG 392 ==
LOC: F2W 11:32 → OBSVTOIN 02-03 19:05
PROVIDERS: ADMIT Internal Medicine; ATTEND Internal Medicine
PROC: B2111ZZ Fluoroscopy of Multiple Coronary Arteries using Low Osmolar Contrast (ICD-10-PCS; principal; 2018-02-04)
PROC: B2151ZZ Fluoroscopy of Left Heart using Low Osmolar Contrast (ICD-10-PCS; principal; 2018-02-04)
DX: R10.13 Epigastric pain (principal); I47.2 Ventricular tachycardia; I47.1 Supraventricular tachycardia; E86.9 Volume depletion, unspecified; I10 Essential (primary) hypertension; E78.5 Hyperlipidemia, unspecified; I25.10 Atherosclerotic heart disease of native coronary artery without angina pectoris; Z23 Encounter for immunization; Z95.5 Presence of coronary angioplasty implant and graft; Z98.890 Other specified postprocedural states
CPT/HCPCS: 82435-PO; 82565-PO; 82947-PO; 84132-PO; 84295-PO; 84484-PO; 84520-PO; 85014-PO; A9500; C1760; G0008; G0009; G0378; J0696; J1170; J1644; J2250; J2785; J3010; Q9967